=== PATIENT | female | born 1990 ===

== ENCOUNTER 2018-12-16 17:57 | Inpatient (IN) | payer SELFPAY ==
--- NOTE | 2018-12-16 18:47 | C.PDOC ---
History Of Present Illness 28 year old female presents to ED with pain localized to the neck that has persisted for the last two months. Patient has a history of neck mass and neck growth. Her PMD told her to go to the ED, but she didn't go and the pain has progressed. She denies any trauma and difficulty swallowing. Time Seen by Provider: 12/16/18 18:10 Chief Complaint (Nursing): Back Pain History Per: Patient History/Exam Limitations: no limitations Onset/Duration Of Symptoms: Other (2 months) Current Symptoms Are (Timing): Still Present Quality Of Discomfort: "Pain" (localized to the neck) Past Medical History Reviewed: Historical Data, Nursing Documentation, Vital Signs Vital Signs: Last Vital Signs Temp 98.5 F 12/16/18 18:05 Pulse 85 12/16/18 18:05 Resp 16 12/16/18 18:05 BP 118/76 12/16/18 18:05 Pulse Ox 100 12/16/18 18:05 - Medical History PMH: No Chronic Diseases Surgical History: No Surg Hx Family History: States: Unknown Family Hx - Social History Hx Alcohol Use: No Hx Substance Use: No - Immunization History Hx Tetanus Toxoid Vaccination: No Hx Influenza Vaccination: No Hx Pneumococcal Vaccination: No Review Of Systems Constitutional: Negative for: Fever, Weakness ENT: Negative for: Other (difficulty swallowing) Musculoskeletal: Positive for: Neck Pain Skin: Positive for: Other (growth and mass on the neck) Neurological: Negative for: Weakness, Numbness, Dizziness Physical Exam - Physical Exam Appears: Well, Non-toxic, No Acute Distress Skin: Normal Color, Warm, Dry Head: Atraumatic, Normacephalic Eye(s): bilateral: Normal Inspection, PERRL, EOMI Neck: Other (swelling and tenderness to right submandibular and posterior ramus region of the mandibular of the neck; no gross erythema or fluctuance; area involved is 10cm by 6 cm; ) Lymphatic: Other (palpable submental lymph node) Chest: Symmetrical, No Deformity Cardiovascular: Rhythm Regular, No Murmur Respiratory: Normal Breath Sounds, No Accessory Muscle Use Gastrointestinal/Abdominal: Soft, No Tenderness Extremity: Capillary Refill (< 2 seconds) Extremity: Bilateral: Atraumatic, Normal Color And Temperature Pulses: Left Radial: Normal, Right Radial: Normal Neurological/Psych: Oriented x3, Normal Speech, Normal Cognition Gait: Steady ED Course And Treatment - Laboratory Results Result Diagrams: 12/16/18 18:48 12/16/18 18:48 O2 Sat by Pulse Oximetry: 100 - CT Scan/US Neck Other Rad Studies (CT/US): Read By Radiologist CT/US Interpretation: Name:JOHNIE ACEVEDO Exam Date:Dec 16, 2018 7:49:32 PM EST. Modality Type:CT. Description:CT - NECK WITH CORONAL AND SAGITTAL MPRS. Gender:F Laterality:Not applicable. :89 Referring Physician:Tramaine Gross). EXAM: CT Neck with Intravenous Contrast. CLINICAL HISTORY: RIGHT LOWER NECK. TECHNIQUE: Axial computed tomography images of the neck with intravenous contrast. Sagittal and coronal reformatted images were generated. 468 mGy-cm. CONTRAST: With; VISI 320 100MLS. COMPARISON: None provided. FINDINGS: PHARYNX: Unremarkable appearance of the nasopharynx, oropharyx, and hypopharynx. No pharyngeal mucosal based mass lesions. LARYNX: The larynx is unremarkable. The epiglottis appears normal. RETROPHARYNGEAL SPACE: No retropharyngeal soft tissue swelling or gas. TRACHEA: The right neck lymphadenopathy causes displacement of the trachea to the left of midline as well as extrinsic compression of the right internal jugular vein. SALIVARY GLANDS: No salivary gland abnormality evident. Unremarkable appearance of the parotid, submandibular, and sublingual glands. LYMPH NODES: See SOFT TISSUES below. Some bilateral axillary lymphadenopathy is detected in portions of the visualized axillae. THYROID: The thyroid gland is unremarkable. No nodule is evident. SOFT TISSUES: Multiple lobulated soft tissue masses are seen throughout the anterolateral right neck beginning in the retromandibular region extending inferiorly into the right supraclavicular region thought consistent with extensive lymphadenopathy. A lesser number of pathologically enlarged left neck lymph nodes and submental lymph nodes are also present. These findings are thought compatible with neoplastic disease; the possibility of lymphoma should be considered. BONES: No aggressive appearing osseous lesion. No acute osseous abnormality. IMPRESSION: 1. Bilateral neck, axillary and submental lymphadenopathy; much more severely pronounced on the right. Findings compatible with a neoplastic process; highly suspicious for lymphoma. 2. The right neck lymphadenopathy displaces the trachea to the left and causes extrinsic compression upon the right internal jugular vein. 3. Consider further evaluation with CT of the chest abdomen pelvis vs PET CT. . Electronically signed on Dec 16, 2018 8:46:34 PM EST by: Bassem Montoya M.D., [place] Certified By ABR & CBCCT. Fellowship Trained MRI and CT Specialist. Medical Decision Making Medical Decision Making: Impression: Neck mass. Plan: Neck soft tissue w/ contrast ordered for patient. Labs ordered with blood culture. Toradol IVP given to patient. Patient will be admitted for surgery, as discussed with . Disposition Discussed With : Keny Maldonado Doctor Will See Patient In The: Hospital Counseled Patient/Family Regarding: Studies Performed, Diagnosis - Disposition Disposition: HOSPITALIZED Disposition Time: 21:25 Condition: FAIR Forms: [facility] (Finnish) - Clinical Impression Clinical Impression: Neck mass
[2018-12-16 18:57] LABS: BASO % 0.3 % (0.0-2.0); EOS % 0.3 % (0.0-4.0); HEMOGLOBIN 13.3 g/dL (11.0-16.0); LYMPH # 1.2 K/uL (1.0-4.3); MEAN CELL VOLUME 91.9 fL (81.0-99.0); MEAN CORPUSCULAR HEMOGLOBIN 30.6 pg (27.0-31.0); MEAN CORPUSCULAR HGB CONC 33.3 g/dL (33.0-37.0); MEAN PLATELET VOLUME 7.5 fL (7.2-11.7); MONO # 0.4 K/uL (0.0-0.8); NEUT # 1.9 K/uL (1.8-7.0); NEUT % 53.4 % (50.0-75.0); NRBC % 0.2 % (0.0-2.0); RBC 4.35 Mil/uL (3.80-5.20); RED CELL DISTRIBUTION WIDTH 12.9 % (11.5-14.5); WHITE BLOOD COUNT 3.6 K/uL (4.8-10.8)
[2018-12-16 19:04] LABS: ALB/GLOB RATIO 0.8 (1.0-2.1); ALBUMIN 4.3 g/dL (3.5-5.0); ALT/SGPT 23 U/L (9-52); AST/SGOT 39 U/L (14-36); BLOOD UREA NITROGEN 19 mg/dL (7-17); CALCIUM 8.7 mg/dl (8.6-10.4); GFR NON-AFRICAN AMERICAN > 60
[2018-12-16] MEDS ORDERED: Iodixanol 320 mg/ml 150 ml Bottle IV ONE (19:18)
--- NOTE | 2018-12-17 09:42 | CP.PCM.CON ---
History of Present Illness - History of Present Illness History of Present Illness: Surgery Consult note for Dr. Allan. 28 year female with no past medical history presented to ED for worsening neck mass. Patient states she has had this neck mass that has been growing in size along with intermittent pain for the past 2 months. Patient denies difficulty swallowing, chewing meals, fevers, chills, nausea, vomiting, chest pain, SOB, abdominal pain, weigh loss. Surgery consulted for neck mass. PMHx: None Meds: None PSHx: None Allergies: None SHx: Denies tobacco use, ETOH, drug use FHx: Denies hx of cancer/ mass in family Review of Systems - Review of Systems All systems: reviewed and no additional remarkable complaints except - Constitutional Constitutional: As Per HPI Past Patient History - Past Medical History & Family History Past Medical History?: No - Past Social History Smoking Status: Never Smoked - MUSCULOSKELETAL/RHEUMATOLOGICAL Hx Falls: No - PSYCHIATRIC Hx Psychophysiologic Disorder: No Hx Substance Use: No - SURGICAL HISTORY Hx Surgeries: No Other/Comment: appendectomy (2010) - ANESTHESIA Hx Anesthesia: Yes Hx Anesthesia Reactions: No Hx Malignant Hyperthermia: No Meds Allergies/Adverse Reactions: Allergies Allergy/AdvReac Type Severity Reaction Status Date / Time No Known Allergies Allergy Verified 12/16/18 19:06 - Medications Medications: Current Medications Influenza Virus Vaccine (Flucelvax Quad 9447-9356 Syr) 60 mcg IM .ONCE ONE Stop: 12/18/18 10:01 Physical Exam - Constitutional Appears: Non-toxic, No Acute Distress - Head Exam Head Exam: NORMAL INSPECTION - ENT Exam Additional comments: Adenopathy of the right neck extending from parotid gland area inferior to thyroid level No tenderness to palpation Point tenderness of left axillary region No palpable mass - Respiratory Exam Respiratory Exam: NORMAL BREATHING PATTERN - Cardiovascular Exam Additional comments: RR Results - Vital Signs Recent Vital Signs: Last Vital Signs Temp 97.9 F 12/17/18 07:00 Pulse 89 12/17/18 07:00 Resp 20 12/17/18 07:00 BP 118/79 12/17/18 07:00 Pulse Ox 98 12/17/18 07:00 - Labs Result Diagrams: 12/16/18 18:48 12/16/18 18:48 Labs: Laboratory Results - last 24 hr 12/16/18 12/16/18 18:48 18:48 WBC 3.6 L RBC 4.35 Hgb 13.3 Hct 39.9 MCV 91.9 MCH 30.6 MCHC 33.3 RDW 12.9 Plt Count 250 MPV 7.5 Neut % (Auto) 53.4 Lymph % (Auto) 34.0 [place] % (Auto) 12.0 H Eos % (Auto) 0.3 Baso % (Auto) 0.3 Neut # (Auto) 1.9 Lymph # (Auto) 1.2 [place] # (Auto) 0.4 Eos # (Auto) 0.0 Baso # (Auto) 0.0 Sodium 138 Potassium 3.5 L Chloride 103 Carbon Dioxide 27 Anion Gap 11 BUN 19 H Creatinine 0.5 L Est GFR ( Amer) > 60 Est GFR (Non-Af Amer) > 60 Random Glucose 99 Calcium 8.7 Total Bilirubin 0.4 AST 39 H ALT 23 Alkaline Phosphatase 154 H Total Protein 9.5 H Albumin 4.3 Globulin 5.2 H Albumin/Globulin Ratio 0.8 L Assessment & Plan - Assessment and Plan (Free Text) Assessment: 28 yr female presenting with 2 month R neck mass Plan: - F/u CT chest/ abd - consult IR for possible biopsy - Further recs per Dr. Allan - F/u quant Blake Stallings, PGY1
--- NOTE | 2018-12-17 12:14 | CT ---
Date of service: 12/16/2018 PROCEDURE: CT NECK WITH CONTRAST HISTORY: right side neck mass COMPARISON: None available. TECHNIQUE: CT of the neck with intravenous contrast. Coronal and sagittal reformats generated. Intravenous contrast dose: Radiation dose: Total exam DLP = 468.34 mGy-cm. This CT exam was performed using one or more of the following dose reduction techniques: Automated exposure control, adjustment of the mA and/or kV according to patient size, and/or use of iterative reconstruction technique. FINDINGS: NASOPHARYNX: Unremarkable. SUPRAHYOID NECK: Unremarkable oropharynx, oral cavity, parapharyngeal space and retropharyngeal space. INFRAHYOID NECK: Unremarkable larynx, hypopharynx, and supraglottic space. Vocal cords intact. MASS: None. GLANDS: Parotid and submandibular glands unremarkable. Normal size thyroid gland, without nodule. LYMPH NODES: Extensive cervical lymphadenopathy with a roughly 3.1 centimeter right neck lymph node measuring mass-effect upon the carotid sheath structures. Additional extensive supraclavicular lymphadenopathy. Slight airway deviation to the left. CERVICAL SPINE: No fracture or focal lesion. VASCULAR STRUCTURES: Unremarkable. OTHER FINDINGS: None. IMPRESSION: Extensive cervical and supraclavicular lymphadenopathy suspicious for neoplastic process such as lymphoma.
[2018-12-17] MEDS ORDERED: Iodixanol 320 MG/ML 100 ML BOTTLE IV ONE (19:03)
--- NOTE | 2018-12-17 21:09 | CP.PCM.HP ---
Present on Admission - Present on Admission Any Indicators Present on Admission: No Past Patient History - Past Medical History & Family History Past Medical History?: No - Past Social History Smoking Status: Never Smoked - MUSCULOSKELETAL/RHEUMATOLOGICAL Hx Falls: No - PSYCHIATRIC Hx Psychophysiologic Disorder: No Hx Substance Use: No - SURGICAL HISTORY Hx Surgeries: No Other/Comment: appendectomy (2010) - ANESTHESIA Hx Anesthesia: Yes Hx Anesthesia Reactions: No Hx Malignant Hyperthermia: No Meds Allergies/Adverse Reactions: Allergies Allergy/AdvReac Type Severity Reaction Status Date / Time No Known Allergies Allergy Verified 12/16/18 19:06 Results - Vital Signs Recent Vital Signs: Last Vital Signs Temp 98.9 F 12/17/18 16:00 Pulse 91 H 12/17/18 16:00 Resp 20 12/17/18 16:00 BP 112/74 12/17/18 16:00 Pulse Ox 97 12/17/18 16:00 - Labs Result Diagrams: 12/16/18 18:48 12/16/18 18:48 Labs: Laboratory Results - last 24 hr 12/17/18 13:55 ESR 92 H
--- NOTE | 2018-12-18 04:07 | HP ---
CHIEF COMPLAINT: The patient has a mass on the right side of the neck for two months. HISTORY OF PRESENT ILLNESS: This is a 28-year-old female with no past medical history. She has a mass in the right side of the neck, and the patient was told by her PMD to come to emergency room. The patient does not have any fever, chills, or rigors. She denies any history of weight loss. She denies any history of problem on swallowing, cough, sore throat, or runny nose. She denies any prior history of tuberculosis. PAST MEDICAL HISTORY: Nothing significant. SOCIAL HISTORY: Nonsmoker. Non-EtOH user. MEDICATIONS: No current medications. REVIEW OF SYSTEMS: No constitutional symptoms. No history of tiredness, anorexia, malaise, or fatigue. PHYSICAL EXAMINATION: GENERAL: This is a 28-year-old young female, in no distress. VITAL SIGNS: Blood pressure is 112/74, pulse 91, respiratory rate 20, and temperature 98.9. SKIN: No rash. No bruises. No purpura. HEENT: Atraumatic and normocephalic. Negative pallor. Negative jaundice. Extraocular movements are intact. NECK: Supple. The patient has a large mass in the right submandibular area, which is firm, nontender and mobile. The patient has on the left side of her neck as well. No JVD. LUNGS: Clear. No rales. No rhonchi. CARDIOVASCULAR SYSTEM: S1 and S2, regular. ABDOMEN: Soft. Nontender. Bowel sounds are positive. EXTREMITIES: No clubbing, cyanosis, or edema. CENTRAL NERVOUS SYSTEM: Awake,alert and oriented x3. ASSESSMENT: Right-sided neck mass, rule out lymphoma, rule out head and neck malignancy, less likely to be tuberculosis. PLAN: Admit. Detailed orders are written. Keny Maldonado MD
--- NOTE | 2018-12-18 08:24 | CP.PCM.PN ---
Subjective - Date & Time of Evaluation Date of Evaluation: 12/18/18 Time of Evaluation: 08:21 - Subjective Subjective: SURGERY NOTE FOR DR. HARPER 28F seen and examined at bedside. Patient denies shortness of breath. Continues to complain of the right sided neck mass. Mildly tender. Objective - Vital Signs/Intake and Output Vital Signs (last 24 hours): Temp Pulse Resp BP Pulse Ox 98 F 79 20 118/83 98 12/18/18 07:54 12/18/18 07:54 12/18/18 07:54 12/18/18 07:54 12/18/18 07:54 - Medications Medications: Current Medications Influenza Virus Vaccine (Flucelvax Quad [id number] Syr) 60 mcg IM .ONCE ONE Stop: 12/18/18 10:01 - Labs Labs: 12/16/18 18:48 12/16/18 18:48 - Constitutional Appears: Non-toxic, No Acute Distress - Neck Exam Neck Exam: Lymphadenopathy (right sided) - Respiratory Exam Respiratory Exam: Clear to Ausculation Bilateral, NORMAL BREATHING PATTERN - Cardiovascular Exam Cardiovascular Exam: REGULAR RHYTHM, +S1, +S2 - GI/Abdominal Exam GI & Abdominal Exam: Soft. absent: Distended, Firm, Guarding, Rigid, Tenderness, Rebound - Neurological Exam Neurological Exam: Alert, Awake - Skin Skin Exam: Dry, Intact, Normal Color, Warm Assessment and Plan - Assessment and Plan (Free Text) Assessment: 28F with left cervical lymphadenopathy Plan: - wll require biopsy - will reach out to IR Further recs discuss with Dr. Jerrell Bradley, PGY3
--- NOTE | 2018-12-18 09:43 | CT ---
Date of service: 12/17/2018 PROCEDURE: CT Chest, Abdomen and Pelvis with intravenous contrast HISTORY: lymphoma COMPARISON: None available. TECHNIQUE: IV dose administered: 100 mL of Visipaque 320 intravenously. Axial and reformatted coronal and sagittal CT images of the chest abdomen and pelvis were obtained after IV contrast administration. Radiation dose: Total exam DLP = 844.96 mGy-cm. This CT exam was performed using one or more of the following dose reduction techniques: Automated exposure control, adjustment of the mA and/or kV according to patient size, and/or use of iterative reconstruction technique. FINDINGS: CT CHEST WITH CONTRAST: LUNGS: No evidence of focal infiltrate or consolidation in the lungs. Mild atelectasis and pulmonary vascular congestion is noted. MEDIASTINUM: Unremarkable. Normal caliber aorta and pulmonary arterial trunk. No aortic dissection. Normal size heart. LYMPH NODES: There are large conglomerate lymphadenopathy at the right mid and lower neck extending to the right supraclavicular region. Partially image submental lymphadenopathy are also noted. There are mildly to moderately enlarged bilateral axillary lymphadenopathy seen. PLEURA: Unremarkable. No pneumothorax. No pleural fluid. BONES: Unremarkable. OTHER FINDINGS: None. CT ABDOMEN AND PELVIS: LIVER: Mild hepatomegaly is noted. No evidence of mass lesion in the liver. The portal vein is patent. GALLBLADDER AND BILE DUCTS: Unremarkable. PANCREAS: Unremarkable. No gross lesion or ductal dilatation. SPLEEN: Unremarkable. ADRENALS: Unremarkable. No mass. KIDNEYS AND URETERS: Unremarkable. No hydronephrosis. No solid mass. VASCULATURE: No aortic atherosclerotic calcification or mural plaque present. Unremarkable. No aortic aneurysm. BOWEL: Unremarkable. No obstruction. No gross mural thickening. The stomach is mildly to moderately distended filled with food debris is. APPENDIX: No evidence of acute appendicitis. PERITONEUM: Unremarkable. No free fluid. No free air. LYMPH NODES: There are mildly enlarged periaortic lymph nodes seen at the upper abdomen is above the level of the kidneys. Slightly prominent left inguinal lymph nodes are also noted. BLADDER: Unremarkable. REPRODUCTIVE: Unremarkable. BONES: No acute fracture. OTHER FINDINGS: None. IMPRESSION: Large conglomerate lymphadenopathy at the right mid and lower neck. Moderate bilateral axillary lymphadenopathy. The possibility of neoplasm such as lymphoma should be considered. Mildly enlarged periaortic upper abdomen lymph nodes noted. Mild hepatomegaly. Kotiox-in-[id number] distended stomach of uncertain etiology. Preliminary report contains concordant findings was submitted by [facility] Radiology.
[2018-12-18] MEDS ORDERED: Influenza Vaccine 60 mcg/0.5 mL SYR (4YR UP) IM ONE (10:00)
[2018-12-18 11:13] LABS: BASO % 0.4 % (0.0-2.0); EOS % 0.5 % (0.0-4.0); HEMOGLOBIN 13.5 g/dL (11.0-16.0); LYMPH # 1.3 K/uL (1.0-4.3); LYMPH % 38.8 % (20.0-40.0); MEAN CELL VOLUME 91.1 fL (81.0-99.0); MEAN CORPUSCULAR HEMOGLOBIN 31.3 pg (27.0-31.0); MEAN CORPUSCULAR HGB CONC 34.3 g/dL (33.0-37.0); MEAN PLATELET VOLUME 7.5 fL (7.2-11.7); MONO # 0.5 K/uL (0.0-0.8); MONO % 14.7 % (0.0-10.0); NEUT # 1.6 K/uL (1.8-7.0); NEUT % 45.6 % (50.0-75.0); NRBC % 0.1 % (0.0-2.0); RBC 4.31 Mil/uL (3.80-5.20); RED CELL DISTRIBUTION WIDTH 12.5 % (11.5-14.5); WHITE BLOOD COUNT 3.5 K/uL (4.8-10.8)
[2018-12-18 11:29] LABS: ALB/GLOB RATIO 0.8 (1.0-2.1); ALBUMIN 4.2 g/dL (3.5-5.0); ALT/SGPT 26 U/L (9-52); AST/SGOT 34 U/L (14-36); BLOOD UREA NITROGEN 12 mg/dL (7-17); CALCIUM 8.7 mg/dl (8.6-10.4); GFR NON-AFRICAN AMERICAN > 60
--- NOTE | 2018-12-18 12:31 | CP.PCM.PN ---
Subjective - Date & Time of Evaluation Date of Evaluation: 12/18/18 Time of Evaluation: 09:00 - Subjective Subjective: dictated Objective - Vital Signs/Intake and Output Vital Signs (last 24 hours): Temp Pulse Resp BP Pulse Ox 98 F 79 20 118/83 98 12/18/18 07:54 12/18/18 07:54 12/18/18 07:54 12/18/18 07:54 12/18/18 07:54 - Labs Labs: 12/18/18 11:06 12/18/18 11:06
[2018-12-18] MEDS ORDERED: ceFAZolin 1 gm in NS 1 GM/100 ML BAG IVPB ONE (13:22)
[2018-12-18] MEDS ORDERED: Bupivacaine HCl 0.5% PF (10 ml) Inj ONE (13:23)
[2018-12-18] MEDS ORDERED: Lidocaine 2% MPF (5 ml) Inj ONE ×2 (13:38→13:39)
[2018-12-18] MEDS ORDERED: Lidocaine Hydrochloride 10 ML INJ ONE (13:39)
[2018-12-18] MEDS ORDERED: Midazolam 2 MG/2 ML VIAL ONE (13:47)
[2018-12-18] MEDS ORDERED: Propofol 10 mg/ml Inj (20 ML) ONE (13:47)
[2018-12-18] MEDS ORDERED: Lidocaine Hydrochloride 5 ML INJ ONE (14:48)
[2018-12-18] MEDS ORDERED: Oxycodone/Acetaminophen 5/325 mg Tab PO PRN (14:55)
--- NOTE | 2018-12-18 14:55 | PCM.SURG1 ---
Surgeon's Initial Post Op Note - Surgeon's Notes Surgeon: Dr. alvarado Vapor Coater: Dr. King PGY3 Type of Anesthesia: General LMA Pre-Operative Diagnosis: neck mass Operative Findings: see dictation Post-Operative Diagnosis: same Operation Performed: true-cut needle biopsy Specimen/Specimens Removed: Right neck mass Estimated Blood Loss: EBL {In ML}: 5 Blood Products Given: N/A Drains Used: No Drains Post-Op Condition: Good Date of Surgery/Procedure: 12/18/18 Time of Surgery/Procedure: 14:55
[2018-12-18] MEDS ORDERED: HYDROmorphone 0.5 mg/0.5 ml ISec IVP PRN (14:57)
[2018-12-18] MEDS ORDERED: HYDROmorphone 0.5 mg/0.5 ml ISec ONE (15:06)
--- NOTE | 2018-12-18 22:10 | CP.PCM.CON ---
History of Present Illness - History of Present Illness History of Present Illness: 28 year old female with no past medical history, presenting with neck pain, found to have lymphadenopathy. The patient notes to progressive neck pain and swelling for about 2 months. The pain worsened which prompted her to come to [facility] ER. A CT C/A/P revealed lymphadenopathy above and below the diaphragm. She is s/p excisional LN biopsy. Past medical history: None Past surgical history: Appendectomy Family history: Denies hematologic and oncologic problems Social history: Denies tobacco, alcohol, and illicit drug use. Allergies: NKA Review of systems: All remaining review of systems including HEENT, cardiovascular, respiratory, gastrointestinal, genitourinary, musculoskeletal, dermatologic, neurologic, and psychiatric are negative unless mentioned in the HPI. Past Patient History - Past Medical History & Family History Past Medical History?: No - Past Social History Smoking Status: Never Smoked - MUSCULOSKELETAL/RHEUMATOLOGICAL Hx Falls: No - PSYCHIATRIC Hx Psychophysiologic Disorder: No Hx Substance Use: No - SURGICAL HISTORY Hx Surgeries: No Other/Comment: appendectomy (2010) - ANESTHESIA Hx Anesthesia: Yes Hx Anesthesia Reactions: No Hx Malignant Hyperthermia: No Meds Allergies/Adverse Reactions: Allergies Allergy/AdvReac Type Severity Reaction Status Date / Time No Known Allergies Allergy Verified 12/16/18 19:06 - Medications Medications: Current Medications Acetaminophen (Tylenol 325mg Tab) 650 mg PO Q4 PRN PRN Reason: Pain, Mild (1-3) Oxycodone/Acetaminophen (Percocet 5/325 Mg Tab) 1 tab PO Q6 PRN PRN Reason: Pain, moderate (4-7) Stop: 12/21/18 18:01 Physical Exam - Head Exam Head Exam: ATRAUMATIC - Eye Exam Eye Exam: Normal appearance - ENT Exam ENT Exam: Mucous Membranes Dry - Neck Exam Neck exam: Positive for: Lymphadenopathy - Respiratory Exam Respiratory Exam: NORMAL BREATHING PATTERN - Cardiovascular Exam Cardiovascular Exam: +S1, +S2 - GI/Abdominal Exam GI & Abdominal Exam: Normal Bowel Sounds - Extremities Exam Extremities exam: Positive for: normal inspection - Neurological Exam Neurological exam: Oriented x3 - Psychiatric Exam Psychiatric exam: Normal Affect, Normal Mood - Skin Skin Exam: Warm Results - Vital Signs Recent Vital Signs: Last Vital Signs Temp 98.2 F 12/18/18 15:45 Pulse 80 12/18/18 15:45 Resp 13 12/18/18 15:45 BP 108/70 12/18/18 15:45 Pulse Ox 99 12/18/18 15:45 - Labs Result Diagrams: 12/18/18 11:06 12/18/18 11:06 Labs: Laboratory Results - last 24 hr 12/18/18 12/18/18 12/18/18 09:35 11:06 11:06 WBC 3.5 L RBC 4.31 Hgb 13.5 Hct 39.3 MCV 91.1 MCH 31.3 H MCHC 34.3 RDW 12.5 Plt Count 242 MPV 7.5 Neut % (Auto) 45.6 L Lymph % (Auto) 38.8 [place] % (Auto) 14.7 H Eos % (Auto) 0.5 Baso % (Auto) 0.4 Neut # (Auto) 1.6 L Lymph # (Auto) 1.3 [place] # (Auto) 0.5 Eos # (Auto) 0.0 Baso # (Auto) 0.0 Sodium 133 Potassium 3.9 Chloride 101 Carbon Dioxide 27 Anion Gap 10 BUN 12 Creatinine 0.6 L Est GFR ( Amer) > 60 Est GFR (Non-Af Amer) > 60 Random Glucose 91 Calcium 8.7 Total Bilirubin 0.5 AST 34 ALT 26 Alkaline Phosphatase 153 H Total Protein 9.4 H Albumin 4.2 Globulin 5.1 H Albumin/Globulin Ratio 0.8 L Urine HCG, Qual Negative Assessment & Plan (1) Neck mass Assessment and Plan: f/u excisional LN biopsy lymphadenopathy above and below the diaphragm further treatment recommendations based on above outpatient f/u Status: Acute (2) Leukopenia Assessment and Plan: mild no neutropenia Thank you for this interesting consult. Status: Acute
--- NOTE | 2018-12-19 03:20 | CP.PCM.PN ---
Subjective - Date & Time of Evaluation Date of Evaluation: 12/19/18 Time of Evaluation: 03:17 - Subjective Subjective: SURGERY NOTE FOR DR. HARPER 28F seen and examined at bedside. Patient is s/p right cervical lymph node biopsy. Denies pain, denies shortness of breath. Objective - Vital Signs/Intake and Output Vital Signs (last 24 hours): Temp Pulse Resp BP Pulse Ox 97.9 F 76 18 104/65 99 12/18/18 23:35 12/18/18 23:35 12/18/18 23:35 12/18/18 23:35 12/18/18 23:35 Intake and Output: 12/18/18 12/19/18 18:59 06:59 Intake Total 550 Balance 550 - Medications Medications: Current Medications Acetaminophen (Tylenol 325mg Tab) 650 mg PO Q4 PRN PRN Reason: Pain, Mild (1-3) Oxycodone/Acetaminophen (Percocet 5/325 Mg Tab) 1 tab PO Q6 PRN PRN Reason: Pain, moderate (4-7) Stop: 12/21/18 18:01 Last Admin: 12/19/18 00:03 Dose: 1 tab - Labs Labs: 12/18/18 11:06 12/18/18 11:06 - Constitutional Appears: Non-toxic, No Acute Distress - Neck Exam Neck Exam: Lymphadenopathy (right neck) - Respiratory Exam Respiratory Exam: Clear to Ausculation Bilateral, NORMAL BREATHING PATTERN - Cardiovascular Exam Cardiovascular Exam: REGULAR RHYTHM, +S1, +S2 Additional comments: site of biopsy CDI - GI/Abdominal Exam GI & Abdominal Exam: Soft. absent: Distended, Firm, Guarding, Rigid, Tenderness, Rebound Assessment and Plan - Assessment and Plan (Free Text) Assessment: 28F with lymphadenopathy, right cervical, b/l axillary and periaortic. s/p vlad- cut biopsy - frozen path - mostly muscle tissue Plan: - will require CT guided biopsy Friday with Dr. Kelley - Oncology on board Further recs discuss with Dr. Jerrell Bradley, PGY3
--- NOTE | 2018-12-19 04:45 | DS ---
DISCHARGE DIAGNOSIS: Lymph node in the neck, pending etiology. HISTORY OF PRESENT ILLNESS AND HOSPITAL COURSE: This is a 28-year-old female with lymph node in the right neck who was referred by her PMD for biopsy, and the patient is undergoing biopsy today. She is medically stable. The patient is afebrile. No shortness of breath. No nausea or vomiting. No chest pain. PHYSICAL EXAMINATION: VITAL SIGNS: Blood pressure 110/70, pulse 70, respiratory rate 16, and temperature 99. LUNGS: Clear. ABDOMEN: Soft. LYMPHATIC: Right side of the submandibular area lymph node. ASSESSMENT: Lymphadenopathy, pending biopsy. PLAN: Monitor the patient. Keny Maldonado MD
[2018-12-19 08:10] LABS: HEPATITIS B SURFACE AG Negative (NEGATIVE)
[2018-12-19 08:15] LABS: HEPATITIS A IGM NEGATIVE (NEGATIVE); HEPATITIS B CORE AB NEGATIVE (NEGATIVE)
[2018-12-19 08:27] LABS: HEPATITIS C ANTIBODY NEGATIVE (NEGATIVE)
--- NOTE | 2018-12-20 22:19 | CP.PCM.PN ---
Subjective - Date & Time of Evaluation Date of Evaluation: 12/20/18 Time of Evaluation: 14:34 - Subjective Subjective: dictated Objective - Vital Signs/Intake and Output Vital Signs (last 24 hours): Temp Pulse Resp BP Pulse Ox 98.1 F 104 H 20 123/86 97 12/20/18 16:00 12/20/18 16:00 12/20/18 16:00 12/20/18 16:00 12/20/18 16:00 - Medications Medications: Current Medications Acetaminophen (Tylenol 325mg Tab) 650 mg PO Q4 PRN PRN Reason: Pain, Mild (1-3) Oxycodone/Acetaminophen (Percocet 5/325 Mg Tab) 1 tab PO Q6 PRN PRN Reason: Pain, moderate (4-7) Stop: 12/21/18 18:01 Last Admin: 12/19/18 00:03 Dose: 1 tab - Labs Labs: 12/18/18 11:06 12/18/18 11:06
--- NOTE | 2018-12-21 01:58 | PN ---
DATE: 12/20/2018 SUBJECTIVE: The patient is afebrile. Her lymph nodes are enlarged and pending biopsy. The patient's HIV antibody is positive. PHYSICAL EXAMINATION: VITAL SIGNS: Blood pressure 122/86, pulse 104, respiratory rate 20, and temperature 98.1. LUNGS: Clear. CVS: S1, S2, regular. ABDOMEN: Soft. ASSESSMENT: 1. Rule out human immunodeficiency virus infection. The patient's human immunodeficiency virus is positive. 2. QuantiFERON is positive. 3. Lymphadenopathy. PLAN: Pending biopsy. Monitor the patient. We will get HIV PCR and T cells. Keny Maldonado MD
--- NOTE | 2018-12-21 10:00 | PCM.SURG1 ---
Surgeon's Initial Post Op Note - Surgeon's Notes Surgeon: Keegan Kelley MD [employer]enic [employer] Supervisor: NONE Type of Anesthesia: Local Pre-Operative Diagnosis: Lymphadenopathy Operative Findings: US showed multiple enlarged cervical lymph nodes Post-Operative Diagnosis: Lymphadenopathy Operation Performed: US guided core biopsy of enlarged cervical lymph node Specimen/Specimens Removed: 20 g core x 8 Estimated Blood Loss: EBL {In ML}: 1 Blood Products Given: N/A Drains Used: No Drains Post-Op Condition: Fair Date of Surgery/Procedure: 12/21/18 Time of Surgery/Procedure: 09:55
--- NOTE | 2018-12-21 13:33 | US ---
PROCEDURE: Date of procedure: 12/21/2018 Procedure: Ultrasound-guided core biopsy of RIGHT neck lymph node, CPT 98998 Ultrasound guidance for biopsy, [address] HISTORY: Enlarged cervical lymph nodes. TECHNIQUE: Following informed consent and procedure time-out, limited ultrasound patient's Right neck demonstrates multiple large lymph nodes. A large submandibular lymph node selected for biopsy measured 3.6 x 2.2 cm centimeter. There is loss of fatty hilum. After the patient neck was prepped and draped in the usual sterile fashion and the skin anesthetized with lidocaine, ultrasound guided core biopsy was performed. A 20 gauge core needle was advanced under ultrasound guidance into the mass. Upon confirmation of needle position, 8x 20 gauge specimens were obtained and sent for routine histology and flow cytometry. A post biopsy ultrasound showed no hematoma IMPRESSION: Ultrasound-guided core biopsy of enlarged right cervical lymph node.
--- NOTE | 2018-12-21 16:18 | CP.PCM.PCO ---
Physician Communication Note - Physician Communication Note Physician Communication Note: Change of service to hospitalist service. Dr. Maldonado has contacted us.
--- NOTE | 2018-12-21 16:36 | CP.PCM.HP ---
<Michelle Prabhakar - Last Filed: 12/21/18 17:26> History of Present Illness - History of Present Illness History of Present Illness: Patient is being transferred to Hospitalist service 12/19 insurance Patient is a 28 year old female with no PMHx who presented to ED for evaluation of increasing in size, right sided neck mass. Pt reports she first noticed the mass on her right neck, and over the past 2 months it has increased significantly in size. 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 Patient reports some phlegm w/ blod tinged streaks, but denies cough or hemoptysis. Patient reports no new sexual encounters, as she is monogamous with her , and no risky behaviors. Patient reports she was recently tested for HIV s/p spontaneous 3 months ago, and all results have been negative. Patient denies weakness, fevers, chills, sweats, weight loss, cough, SOB, nausea, diarrhea. PMHx: denies PSHx: appendectomy Meds: denies Allergies: NKDA SocHx: denies tobacco/drug use, social alcohol use. Lives home with and 2 kids FamHx: unknown Present on Admission - Present on Admission Any Indicators Present on Admission: No Review of Systems - Constitutional Constitutional: absent: Chills, Lethargy - EENT Nose/Mouth/Throat: Nasal Discharge, Throat Swelling, Neck Mass. absent: Dysphagia, Hoarsness, Sore Throat - Cardiovascular Cardiovascular: absent: Chest Pain, Palpitations - Respiratory Respiratory: Cough, Hemoptysis - Gastrointestinal Gastrointestinal: absent: Abdominal Pain, Diarrhea, Nausea - Genitourinary Genitourinary: absent: Dysuria - Hematologic/Lymphatic Hematologic: Lymphadenopathy Past Patient History - Past Medical History & Family History Past Medical History?: No - Past Social History Smoking Status: Never Smoked - MUSCULOSKELETAL/RHEUMATOLOGICAL Hx Falls: No - PSYCHIATRIC Hx Psychophysiologic Disorder: No Hx Substance Use: No - SURGICAL HISTORY Hx Surgeries: No Other/Comment: appendectomy (2010) - ANESTHESIA Hx Anesthesia: Yes Hx Anesthesia Reactions: No Hx Malignant Hyperthermia: No Meds Allergies/Adverse Reactions: Allergies Allergy/AdvReac Type Severity Reaction Status Date / Time No Known Allergies Allergy Verified 12/16/18 19:06 Physical Exam - Constitutional Appears: Non-toxic, No Acute Distress - Head Exam Head Exam: ATRAUMATIC, NORMAL INSPECTION, NORMOCEPHALIC - Eye Exam Eye Exam: EOMI, Normal appearance - ENT Exam ENT Exam: Mucous Membranes Moist, Normal Exam - Neck Exam Neck exam: Positive for: Lymphadenopathy (right neck), Tenderness. Negative for: Thyromegaly - Respiratory Exam Respiratory Exam: Clear to Auscultation Bilateral, NORMAL BREATHING PATTERN. absent: Rales, Rhonchi, Wheezes - Cardiovascular Exam Cardiovascular Exam: REGULAR RHYTHM, +S1, +S2. absent: Tachycardia - GI/Abdominal Exam GI & Abdominal Exam: Normal Bowel Sounds, Soft. absent: Distended, Tenderness - Extremities Exam Extremities exam: Positive for: normal inspection. Negative for: calf tenderness, pedal edema - Neurological Exam Neurological exam: Alert, Normal Gait, Oriented x3 - Psychiatric Exam Psychiatric exam: Normal Affect, Normal Mood - Skin Skin Exam: Dry, Intact, Normal Color, Warm Results - Vital Signs Recent Vital Signs: Last Vital Signs Temp 97.9 F 12/21/18 15:42 Pulse 88 12/21/18 15:42 Resp 20 12/21/18 15:42 BP 103/61 12/21/18 15:42 Pulse Ox 98 12/21/18 15:42 - Labs Result Diagrams: 12/18/18 11:06 12/18/18 11:06 Assessment & Plan - Assessment and Plan (Free Text) Assessment: 28 year old female admitted for evaluation of acute lymphadenopathy of right neck, found to test positive for HIV and TB Plan: TB -Quaniteron positive -f/u PPD -f/u sputum cx for AFB -isolation precautions -Chest CT: no acute pathology -ID consult, Dr. Beltran HIV -f/u HIV RNA, AB -f/u CD3/4 -r/o PNA -IV Abx: vanco zosyn, bactrim -ID consult, Dr. Beltran Lymphadenopathy -Right neck , pathology shows fibroadipose tissue showing patchy acute and chronic inflammation -f/u bx 2/4 -f/u TSH, LDH -f/u lymphocyte subset panel -urine cx -acetaminophen and percocet pain control Discussed w/ Dr. Comer -Michelle Prabhakar, PGY-1 <Norris Comer - Last Filed: 12/21/18 17:33> Results - Vital Signs Recent Vital Signs: Last Vital Signs Temp 97.9 F 12/21/18 15:42 Pulse 88 12/21/18 15:42 Resp 20 12/21/18 15:42 BP 103/61 12/21/18 15:42 Pulse Ox 98 12/21/18 15:42 - Labs Result Diagrams: 12/18/18 11:06 12/18/18 11:06 Attending/Attestation - Attestation I have personally seen and examined this patient.: Yes I have fully participated in the care of the patient.: Yes I have reviewed all pertinent clinical information: Yes Notes (Text): 12/21/18 17:29 Medical attending: Patient was seen and examined by me. Agree with the above note by the resident Patient is a transfer to the hospitalist service. As mentioned above, she came with concerns for growing neck mass and has just had on 12/18 an exicional biopsy by surgery as well as IR doing an additional biopsy earlier today. The patient has been moved to an isolation room as there is + HIV with also a + Qunaterferon Gold assay. There is some question if she is having blood in sputum or not however reguardless will check sptum AFB stain and cultures. Also there is pending CD3, CD4, and CD8 testing and HIV viral quant assay as well that were already ordered For the time being will place on Vancomycin and Zosyn and also IV bactrim until we have further information return to us Norris Comer
[2018-12-21] MEDS ORDERED: Tuberculin 5 Units/0.1 ml Inj ID ONE (17:15)
[2018-12-21] MEDS: Piperacill/Tazo 3.375gm in Dex 3.375 GM/50 ML BAG IVPB SCH (19:13)
[2018-12-21] MEDS: Vancomycin 1 gm/NS 200 ml 1 GM/200 ML BAG IVPB SCH (20:20)
--- NOTE | 2018-12-21 23:07 | CP.PCM.PN ---
Subjective - Date & Time of Evaluation Date of Evaluation: 12/21/18 Time of Evaluation: 19:00 - Subjective Subjective: No complaints. Objective - Vital Signs/Intake and Output Vital Signs (last 24 hours): Temp Pulse Resp BP Pulse Ox 97.9 F 79 18 116/72 97 12/21/18 22:45 12/21/18 22:45 12/21/18 22:45 12/21/18 22:45 12/21/18 22:45 - Medications Medications: Current Medications Acetaminophen (Tylenol 325mg Tab) 650 mg PO Q4 PRN PRN Reason: Pain, Mild (1-3) Piperacillin Sod/Tazobactam Sod (Zosyn 3.375 Gm Iv Premix) 3.375 gm in 50 mls @ 100 mls/hr IVPB Q6H ARSLAN; Protocol Last Admin: 12/21/18 19:13 Dose: 100 mls/hr Trimethoprim/Sulfamethoxazole (80 mg/ Dextrose) 100 mls @ 100 mls/hr IVPB Q12H ARSLAN; Protocol Vancomycin/Sodium Chloride (Vancomycin 1 Gm/Ns 200 Ml) 1 gm in 200 mls @ 133 mls/hr IVPB Q24H ARSLAN; Protocol Stop: 12/26/18 17:01 Last Admin: 12/21/18 20:20 Dose: 133 mls/hr - Labs Labs: 12/18/18 11:06 12/18/18 11:06 - Head Exam Head Exam: ATRAUMATIC - Eye Exam Eye Exam: Normal appearance - ENT Exam ENT Exam: Mucous Membranes Dry - Respiratory Exam Respiratory Exam: NORMAL BREATHING PATTERN - Cardiovascular Exam Cardiovascular Exam: +S1, +S2 - GI/Abdominal Exam GI & Abdominal Exam: Normal Bowel Sounds Assessment and Plan (1) Neck mass Assessment & Plan: f/u biopsy Status: Acute (2) Leukopenia Assessment & Plan: ? active HIV; f/u PCR Status: Acute
[2018-12-21] MEDS: Sulfamethoxazole/Trimethoprim 80 MG in Dextrose 5% In Water 100 ML IVPB SCH (23:09)
[2018-12-22] MEDS: Piperacill/Tazo 3.375gm in Dex 3.375 GM/50 ML BAG IVPB SCH ×5 (00:18→23:43)
[2018-12-22] MEDS: Sulfamethoxazole/Trimethoprim 80 MG in Dextrose 5% In Water 100 ML IVPB SCH ×2 (09:14→22:18)
--- NOTE | 2018-12-22 09:22 | CP.PCM.PN ---
Subjective - Date & Time of Evaluation Date of Evaluation: 12/22/18 Time of Evaluation: 09:22 - Subjective Subjective: HOSPITALIST SERVICE pt s/e at bedside, contact precautions, denies pain or soreness at site of bx, denies difficulty swallowing, denies cp sob fc nv, pt understands need for hospitalization and agrees with plan, some preliminary results have been shared w/ her, will continue to update Objective - Vital Signs/Intake and Output Vital Signs (last 24 hours): Temp Pulse Resp BP Pulse Ox 97.9 F 83 20 104/72 96 12/22/18 07:00 12/22/18 07:00 12/22/18 07:00 12/22/18 07:00 12/22/18 07:00 Intake and Output: 12/22/18 12/22/18 06:59 18:59 Intake Total 300 Balance 300 - Medications Medications: Current Medications Acetaminophen (Tylenol 325mg Tab) 650 mg PO Q4 PRN PRN Reason: Pain, Mild (1-3) Piperacillin Sod/Tazobactam Sod (Zosyn 3.375 Gm Iv Premix) 3.375 gm in 50 mls @ 100 mls/hr IVPB Q6H ARSLAN; Protocol Last Admin: 12/22/18 05:12 Dose: 100 mls/hr Trimethoprim/Sulfamethoxazole (80 mg/ Dextrose) 100 mls @ 100 mls/hr IVPB Q12H ARSLAN; Protocol Last Admin: 12/22/18 09:14 Dose: 100 mls/hr Vancomycin/Sodium Chloride (Vancomycin 1 Gm/Ns 200 Ml) 1 gm in 200 mls @ 133 mls/hr IVPB Q24H ARSLAN; Protocol Stop: 12/26/18 17:01 Last Admin: 12/21/18 20:20 Dose: 133 mls/hr - Labs Labs: 12/18/18 11:06 12/18/18 11:06 - Additional Findings Additional findings: - Constitutional Appears: Non-toxic, No Acute Distress - Head Exam Head Exam: ATRAUMATIC, NORMAL INSPECTION, NORMOCEPHALIC - Eye Exam Eye Exam: EOMI, Normal appearance - ENT Exam ENT Exam: Mucous Membranes Moist, Normal Exam - Neck Exam Neck exam: Positive for: Lymphadenopathy (right neck), Tenderness. Negative for: Thyromegaly - Respiratory Exam Respiratory Exam: Clear to Auscultation Bilateral, NORMAL BREATHING PATTERN. absent: Rales, Rhonchi, Wheezes - Cardiovascular Exam Cardiovascular Exam: REGULAR RHYTHM, +S1, +S2. absent: Tachycardia - GI/Abdominal Exam GI & Abdominal Exam: Normal Bowel Sounds, Soft. absent: Distended, Tenderness - Extremities Exam Extremities exam: Positive for: normal inspection. Negative for: calf tenderness, pedal edema - Neurological Exam Neurological exam: Alert, Normal Gait, Oriented x3 - Psychiatric Exam Psychiatric exam: Normal Affect, Normal Mood - Skin Skin Exam: Dry, Intact, Normal Color, Warm Assessment and Plan - Assessment and Plan (Free Text) Plan: 28 year old female admitted for evaluation of acute lymphadenopathy of right neck, found to test positive for HIV and TB Plan: TB -Quaniteron positive -f/u PPD -f/u sputum cx for AFB -isolation precautions -Chest CT: no acute pathology -ID consult, Dr. Beltran -BC neg 5 days HIV -HIV reactive f/u HIV RNA, AB -f/u CD3/4 -r/o PNA -IV Abx: vanco zosyn, bactrim -ID consult, Dr. Beltran f/u recs Lymphadenopathy -Right neck , pathology shows fibroadipose tissue showing patchy acute and chronic inflammation -f/u bx 2/4 -3.0 TSH, 0.77 free T4 -LDH -f/u lymphocyte subset panel -urine cx -acetaminophen pain control
[2018-12-22 11:57] LABS: SQUAMOUS EPITHIAL 10 /hpf (0-5); URINE BILIRUBIN NEGATIVE (NEGATIVE); URINE BLOOD NEGATIVE (NEGATIVE); URINE CLARITY Hazy (Clear); URINE COLOR Yellow (YELLOW); URINE GLUCOSE (UA) NORMAL (Normal); URINE LEUKOCYTE ESTERASE NEG Leu/uL (Negative); URINE PROTEIN NEGATIVE (NEGATIVE); URINE UROBILINOGEN NORMAL mg/dL (0.2-1.0)
[2018-12-22] MEDS: Vancomycin 1 gm/NS 200 ml 1 GM/200 ML BAG IVPB SCH (17:14)
--- NOTE | 2018-12-23 02:06 | CON ---
DATE: 12/22/2018 INFECTIOUS DISEASE CONSULTATION REQUESTED BY: Keny Maldonado MD HISTORY OF PRESENT ILLNESS: This patient is a 28-year-old female. She has no past medical history. She came in with a worsening right neck pain and mass. She says there is no pain, but she has the swelling which has been growing in size for the last two months. She is from [facility] and she has been here for four years. She does give me history of one of her family person on father side had tuberculosis. She denies any contact with this person. She denies any fevers. No chills. No nausea. No vomiting. No chest pain. No shortness of breath. No abdominal pain. No other conditions and she had a biopsy done. We are waiting for the biopsy report also; however, her HIV tests also came back positive. She says she is , and she wants her to be tested which can be done from the clinic or from the primary doctor, I told her. She speaks mostly Divehi. She was surprised that she is HIV positive. Two months back, she had a spontaneous , and she says she had blood work done at that time. Past medical history is otherwise noncontributory. She did have . SOCIAL HISTORY: She has no history of EtOH, tobacco or drug abuse. She was also seen by Dr. Loja as they were suspecting lymphoma and Hodgkin's. PAST SURGICAL HISTORY: Significant for appendicectomy. FAMILY HISTORY: Noncontributory for any malignancy. PAST MEDICAL HISTORY: She never smoked. No history of fall. No psych history. Surgery was appendicectomy in 2010. ALLERGIES: SHE IS NOT ALLERGIC TO ANY MEDICINE. MEDICATIONS: Medications she took were Tylenol and Percocet. PHYSICAL EXAMINATION: GENERAL: I find she is awake and alert. Weight is 169. Height 5 feet 3 inches. VITAL SIGNS: T-max is 97.8, pulse 81, blood pressure 103/67, respirations are 18. HEENT: Head is atraumatic, normocephalic. Pupils are reacting to light. Tongue is moist. NECK: In the right neck, there are some matted lymph nodes. Left neck is unremarkable. Neck is supple. LUNGS: Clear. No crackles or rales present. HEART: S1 and S2 are regular. AXILLA: Has no lymphadenopathy. ABDOMEN: Soft, nontender. No guarding, no rigidity present. LABORATORY DATA: Labs are noted. White count is 3.5, hemoglobin 13.5, hematocrit is 39.3, platelet count is 242. BUN is 12, creatinine 0.6. She also had a TB test Gold QuantiFERON which is positive, and her HIV antibodies are reactive. They did hepatitis C, which is negative. RPR is nonreactive. ASSESSMENT AND PLAN: We will have to do further testing. This patient has tested positive for human immunodeficiency virus disease. She says she is and will need to also follow up for the testing. She had chest x-ray, abdominal and pelvic CT which showed large conglomerate lymphadenopathy in right mid and lower neck, moderate bilateral axillary lymphadenopathy, possibility of neoplasm such as lymphoma should be considered, mildly enlarged periaortic abdominal lymph nodes noticed, mild hepatomegaly, [id number] distended stomach of uncertain etiology. She does have variable areas of lymphadenopathy. I am not sure if those are related to lymphoma or tuberculosis as she has tuberculosis test positive or is this secondary to human immunodeficiency virus disease. Therefore, we ordered further testing for human immunodeficiency virus and wait for the pathology report before we start any kind of treatment for tuberculosis. If it is tuberculosis, we will have to contact the state department and start her on four antibiotics before we start to treat human immunodeficiency virus disease, but she will need a CD-4 count and human immunodeficiency virus viral load. We will order those if it has not been ordered. We will follow. Jeromy Beltran MD
[2018-12-23] MEDS: Piperacill/Tazo 3.375gm in Dex 3.375 GM/50 ML BAG IVPB SCH ×4 (05:40→22:20)
[2018-12-23] MEDS: Sulfamethoxazole/Trimethoprim 80 MG in Dextrose 5% In Water 100 ML IVPB SCH ×2 (09:08→20:16)
--- NOTE | 2018-12-23 10:39 | CP.PCM.PN ---
<Roger Burtonophe - Last Filed: 12/23/18 16:25> Subjective - Date & Time of Evaluation Date of Evaluation: 12/23/18 Time of Evaluation: 16:14 - Subjective Subjective: HOSPITALIST SERVICE Pt seen and examined at bedside, no complaints overnight. Pt was told her diagnosis of HIV and recommeded Family get tested as well, Pt understands and is cooperative. Pt also understands TB results are still pending final confirmations but she is required to wait until finalized and treated appropriately if need be. Pt denies CP SOB FC NV Objective - Vital Signs/Intake and Output Vital Signs (last 24 hours): Temp Pulse Resp BP Pulse Ox 98.4 F 74 20 110/74 100 12/23/18 07:00 12/23/18 07:00 12/23/18 07:00 12/23/18 07:00 12/23/18 07:00 Intake and Output: 12/23/18 12/23/18 06:59 18:59 Intake Total 700 Balance 700 - Medications Medications: Current Medications Acetaminophen (Tylenol 325mg Tab) 650 mg PO Q4 PRN PRN Reason: Pain, Mild (1-3) Piperacillin Sod/Tazobactam Sod (Zosyn 3.375 Gm Iv Premix) 3.375 gm in 50 mls @ 100 mls/hr IVPB Q6H ARSLAN; Protocol Last Admin: 12/23/18 05:40 Dose: 100 mls/hr Trimethoprim/Sulfamethoxazole (80 mg/ Dextrose) 100 mls @ 100 mls/hr IVPB Q12H ARSLAN; Protocol Last Admin: 12/23/18 09:08 Dose: 100 mls/hr Vancomycin/Sodium Chloride (Vancomycin 1 Gm/Ns 200 Ml) 1 gm in 200 mls @ 133 mls/hr IVPB Q24H ARSLAN; Protocol Stop: 12/26/18 17:01 Last Admin: 12/22/18 17:14 Dose: 133 mls/hr - Labs Labs: 12/18/18 11:06 12/18/18 11:06 - Additional Findings Additional findings: - Constitutional Appears: Non-toxic, No Acute Distress - Head Exam Head Exam: ATRAUMATIC, NORMAL INSPECTION, NORMOCEPHALIC - Eye Exam Eye Exam: EOMI, Normal appearance - ENT Exam ENT Exam: Mucous Membranes Moist, Normal Exam - Neck Exam Neck exam: Positive for: Lymphadenopathy (right neck), Tenderness. Negative for: Thyromegaly - Respiratory Exam Respiratory Exam: Clear to Auscultation Bilateral, NORMAL BREATHING PATTERN. absent: Rales, Rhonchi, Wheezes - Cardiovascular Exam Cardiovascular Exam: REGULAR RHYTHM, +S1, +S2. absent: Tachycardia - GI/Abdominal Exam GI & Abdominal Exam: Normal Bowel Sounds, Soft. absent: Distended, Tenderness - Extremities Exam Extremities exam: Positive for: normal inspection. Negative for: calf tenderness, pedal edema - Neurological Exam Neurological exam: Alert, Normal Gait, Oriented x3 - Psychiatric Exam Psychiatric exam: Normal Affect, Normal Mood - Skin Skin Exam: Dry, Intact, Normal Color, Warm Assessment and Plan - Assessment and Plan (Free Text) Plan: 28 year old female admitted for evaluation of acute lymphadenopathy of right neck, found to test positive for HIV and TB Plan: TB -Quaniteron positive -f/u PPD -f/u sputum cx for AFB: ordered induced -isolation precautions -Chest CT: no acute pathology -ID consult, Dr. Beltran -BC neg 5 days HIV -HIV reactive elevated HIV RNA, AB -Low CD3/4 -IV Abx: vanco zosyn, bactrim -ID consult, Dr. Beltran f/u recs f/u when to start anti retrovirals Lymphadenopathy -Right neck , pathology shows fibroadipose tissue showing patchy acute and chronic inflammation -f/u bx 2/4 -3.0 TSH, 0.77 free T4 -LDH -f/u lymphocyte subset panel -urine cx -acetaminophen pain control PPx: -Regular Diet -PPS for VTE scor 6: Heparin 5000u sc q8 -No GI ppx indicated <Norris Comer - Last Filed: 12/23/18 16:49> Objective - Vital Signs/Intake and Output Vital Signs (last 24 hours): Temp Pulse Resp BP Pulse Ox 98.4 F 74 20 110/74 100 12/23/18 07:00 12/23/18 07:00 12/23/18 07:00 12/23/18 07:00 12/23/18 07:00 Intake and Output: 12/23/18 12/23/18 06:59 18:59 Intake Total 700 Balance 700 - Medications Medications: Current Medications Acetaminophen (Tylenol 325mg Tab) 650 mg PO Q4 PRN PRN Reason: Pain, Mild (1-3) Heparin Sodium (Porcine) (Heparin) 5,000 units SC Q8 ARSLAN Piperacillin Sod/Tazobactam Sod (Zosyn 3.375 Gm Iv Premix) 3.375 gm in 50 mls @ 100 mls/hr IVPB Q6H ARSLAN; Protocol Last Admin: 12/23/18 16:10 Dose: 100 mls/hr Trimethoprim/Sulfamethoxazole (80 mg/ Dextrose) 100 mls @ 100 mls/hr IVPB Q12H ARSLAN; Protocol Last Admin: 12/23/18 09:08 Dose: 100 mls/hr Vancomycin/Sodium Chloride (Vancomycin 1 Gm/Ns 200 Ml) 1 gm in 200 mls @ 133 mls/hr IVPB Q24H ARSLAN; Protocol Stop: 12/26/18 17:01 Last Admin: 12/22/18 17:14 Dose: 133 mls/hr - Labs Labs: 12/23/18 10:34 12/23/18 10:34 Attending/Attestation - Attestation I have personally seen and examined this patient.: Yes I have fully participated in the care of the patient.: Yes I have reviewed all pertinent clinical information, including history, physical exam and plan: Yes Notes (Text): 12/23/18 16:47 Medical attending: Patient was seen and examined by me. Agree with the above note by the resident The patient was not in any acute distress when I came and saw her with the resident We again discussed her HIV and the viral load. We are still pending sptum AFB stain and cultures She had a lot of questions and we had translation with help of the behavioral medical director For the time being the patient is on IV abx and IV bactrim The second biopsy pathology has not returned yet Norris Comer
[2018-12-23 10:43] LABS: BASO % 0.3 % (0.0-2.0); EOS % 0.4 % (0.0-4.0); HEMOGLOBIN 12.8 g/dL (11.0-16.0); LYMPH # 1.1 K/uL (1.0-4.3); LYMPH % 33.3 % (20.0-40.0); MEAN CORPUSCULAR HEMOGLOBIN 31.1 pg (27.0-31.0); MEAN CORPUSCULAR HGB CONC 34.2 g/dL (33.0-37.0); MEAN PLATELET VOLUME 7.4 fL (7.2-11.7); MONO # 0.4 K/uL (0.0-0.8); MONO % 11.6 % (0.0-10.0); NEUT # 1.9 K/uL (1.8-7.0); NEUT % 54.4 % (50.0-75.0); NRBC % 0.2 % (0.0-2.0); RBC 4.12 Mil/uL (3.80-5.20); RED CELL DISTRIBUTION WIDTH 12.6 % (11.5-14.5); WHITE BLOOD COUNT 3.4 K/uL (4.8-10.8)
[2018-12-23 11:03] LABS: ALB/GLOB RATIO 0.8 (1.0-2.1); ALT/SGPT 17 U/L (9-52); AST/SGOT 30 U/L (14-36); BLOOD UREA NITROGEN 10 mg/dL (7-17); CALCIUM 8.7 mg/dl (8.6-10.4); GFR NON-AFRICAN AMERICAN > 60
[2018-12-23 12:36] LABS: % CD4 (T HELPER CELL) 18 Percent (30-61); % CD8 (SUPPRESSOR T CELL) 61 Percent (12-42); ABSOLUTE CD19 CELLS 84 Cells/mcL (110-660); ABSOLUTE CD3 CELLS 1395 Cells/mcL (840-3060); ABSOLUTE CD4 CELLS 321 Cells/mcL (490-1740); ABSOLUTE CD8 CELLS 1113 Cells/mcL (180-1170); ABSOLUTE LYMPHOCYTES 1734 Cells/mcL (850-3900); HELPER/SUPPRESSOR RATIO 0.29 Ratio (0.86-5.00)
--- NOTE | 2018-12-23 14:41 | OP ---
PROCEDURE DATE: 12/18/2018 SURGEON: Donell Allan MD ACCOUNTS COLLECTOR: Jannie King DO ANESTHESIA: General LMA. ANESTHESIOLOGIST: Brandie Rivera CRNA and Roscoe Costa MD. PREOPERATIVE DIAGNOSES: Lymphadenopathy and right neck mass. POSTOPERATIVE DIAGNOSES: Lymphadenopathy and right neck mass. PROCEDURE: Core needle biopsy of right neck mass. DESCRIPTION OF OPERATION: With the patient in the supine position under adequate general anesthesia, the right neck was prepped and draped in usual sterile manner. The patient had swelling noted deep to the sternocleidomastoid in the lower portion of the neck and after a small skin deidra was made, a 20-gauge Puneet-Cut needle was aimed into the mass and advanced with care taken to maintain an angle parallel to the axis of the neck to avoid vessel injury. Multiple core samples were taken, although it was noted to be difficult to advance the needle and small cores of what appear to be white tissue were accessed. These were sent to pathology and were felt to be skin and muscle and additional cores were taken using an automatic biopsy needle. These were also felt to represent skin and muscle tissue and at this point, the procedure was terminated with the determination that image-guided biopsy would be performed and it was felt that deeper point biopsy in the neck was inadvisable. The patient tolerated the procedure well and transferred to the recovery room in stable condition. Estimated blood loss for the procedure was 5 mL. Donell Allan MD
[2018-12-23] MEDS: Vancomycin 1 gm/NS 200 ml 1 GM/200 ML BAG IVPB SCH (16:55)
[2018-12-23 19:17] LABS: % CD4 (T HELPER CELL) 19 Percent (30-61); % CD8 (SUPPRESSOR T CELL) 58 Percent (12-42); ABSOLUTE CD3 CELLS 1068 Cells/mcL (840-3060); ABSOLUTE CD4 CELLS 265 Cells/mcL (490-1740); ABSOLUTE CD8 CELLS 799 Cells/mcL (180-1170); ABSOLUTE LYMPHOCYTES 1367 Cells/mcL (850-3900); HELPER/SUPPRESSOR RATIO 0.33 Ratio (0.86-5.00)
[2018-12-24] MEDS: Piperacill/Tazo 3.375gm in Dex 3.375 GM/50 ML BAG IVPB SCH ×4 (04:57→22:07)
--- NOTE | 2018-12-24 07:32 | CP.PCM.PN ---
<Daquan Burton - Last Filed: 12/24/18 14:27> Subjective - Date & Time of Evaluation Date of Evaluation: 12/24/18 Time of Evaluation: 14:27 - Subjective Subjective: HOSPITALIST SERVICE Pt s/e at bedside. still contact and airborne precautions. Pt still concerned about her results of bx. Pt denies any acute symptoms overnight, neck is still painless, feels equal in size, denies any chest pain, SOB, FC NV or nightsweats Objective - Vital Signs/Intake and Output Vital Signs (last 24 hours): Temp Pulse Resp BP Pulse Ox 97.9 F 78 20 105/69 97 12/23/18 23:30 12/23/18 23:30 12/23/18 23:30 12/23/18 23:30 12/23/18 23:30 - Medications Medications: Current Medications Acetaminophen (Tylenol 325mg Tab) 650 mg PO Q4 PRN PRN Reason: Pain, Mild (1-3) Heparin Sodium (Porcine) (Heparin) 5,000 units SC Q8 ARSLAN Last Admin: 12/24/18 07:09 Dose: 5,000 units Piperacillin Sod/Tazobactam Sod (Zosyn 3.375 Gm Iv Premix) 3.375 gm in 50 mls @ 100 mls/hr IVPB Q6H ARSLAN; Protocol Last Admin: 12/24/18 04:57 Dose: 100 mls/hr Trimethoprim/Sulfamethoxazole (80 mg/ Dextrose) 100 mls @ 100 mls/hr IVPB Q12H ARSLAN; Protocol Last Admin: 12/23/18 20:16 Dose: 100 mls/hr Vancomycin/Sodium Chloride (Vancomycin 1 Gm/Ns 200 Ml) 1 gm in 200 mls @ 133 mls/hr IVPB Q24H ARSLAN; Protocol Stop: 12/26/18 17:01 Last Admin: 12/23/18 16:55 Dose: 133 mls/hr - Labs Labs: 12/23/18 10:34 12/23/18 10:34 - Additional Findings Additional findings: - Constitutional Appears: Non-toxic, No Acute Distress - Head Exam Head Exam: ATRAUMATIC, NORMAL INSPECTION, NORMOCEPHALIC - Eye Exam Eye Exam: EOMI, Normal appearance - ENT Exam ENT Exam: Mucous Membranes Moist, Normal Exam - Neck Exam Neck exam: Positive for: Lymphadenopathy (right neck), Tenderness. Negative for: Thyromegaly - Respiratory Exam Respiratory Exam: Clear to Auscultation Bilateral, NORMAL BREATHING PATTERN. absent: Rales, Rhonchi, Wheezes - Cardiovascular Exam Cardiovascular Exam: REGULAR RHYTHM, +S1, +S2. absent: Tachycardia - GI/Abdominal Exam GI & Abdominal Exam: Normal Bowel Sounds, Soft. absent: Distended, Tenderness - Extremities Exam Extremities exam: Positive for: normal inspection. Negative for: calf tendern ess, pedal edema - Neurological Exam Neurological exam: Alert, Normal Gait, Oriented x3 - Psychiatric Exam Psychiatric exam: Normal Affect, Normal Mood - Skin Skin Exam: Dry, Intact, Normal Color, Warm Assessment and Plan - Assessment and Plan (Free Text) Assessment: 28 year old female admitted for evaluation of acute lymphadenopathy of right neck, found to test positive for HIV and TB Plan: TB -Quaniteron positive -f/u PPD -f/u sputum cx for AFB: ordered induced -isolation precautions -Chest CT: no acute pathology -ID consult, Dr. Beltran -BC neg 5 days HIV -HIV reactive elevated HIV RNA, AB -Low CD3/4 -IV Abx: vanco zosyn, bactrim -ID consult, Dr. Beltran f/u recs f/u when to start anti retrovirals Lymphadenopathy -Right neck , pathology shows fibroadipose tissue showing patchy acute and chr onic inflammation -f/u bx 2/4 -3.0 TSH, 0.77 free T4 -LDH -f/u lymphocyte subset panel -urine cx pos Staph A -acetaminophen pain control UTI -UC pos Staph A: likely contamination, however pt is immunocompromised -Repeat ordered -Bactrim IVPB PPx: -Regular Diet -PPS for VTE scor 6: Heparin 5000u sc q8 -No GI ppx indicated <Norris Comer - Last Filed: 12/24/18 16:48> Objective - Vital Signs/Intake and Output Vital Signs (last 24 hours): Temp Pulse Resp BP Pulse Ox 97.5 F L 82 20 121/70 97 12/24/18 16:25 12/24/18 16:25 12/24/18 16:25 12/24/18 16:25 12/24/18 16:25 - Medications Medications: Current Medications Acetaminophen (Tylenol 325mg Tab) 650 mg PO Q4 PRN PRN Reason: Pain, Mild (1-3) Heparin Sodium (Porcine) (Heparin) 5,000 units SC Q8 ARSLAN Last Admin: 12/24/18 14:26 Dose: 5,000 units Piperacillin Sod/Tazobactam Sod (Zosyn 3.375 Gm Iv Premix) 3.375 gm in 50 mls @ 100 mls/hr IVPB Q6H ARSLAN; Protocol Last Admin: 12/24/18 11:40 Dose: 100 mls/hr Trimethoprim/Sulfamethoxazole (80 mg/ Dextrose) 100 mls @ 100 mls/hr IVPB Q12H ARSLAN; Protocol Last Admin: 12/24/18 11:39 Dose: 100 mls/hr Vancomycin/Sodium Chloride (Vancomycin 1 Gm/Ns 200 Ml) 1 gm in 200 mls @ 133 mls/hr IVPB Q24H ARSLAN; Protocol Stop: 12/26/18 17:01 Last Admin: 12/23/18 16:55 Dose: 133 mls/hr - Labs Labs: 12/24/18 09:00 12/24/18 09:00 APTT 45 SECONDS (21-34) H 12/24/18 09:00 Attending/Attestation - Attestation I have personally seen and examined this patient.: Yes I have fully participated in the care of the patient.: Yes I have reviewed all pertinent clinical information, including history, physical exam and plan: Yes Notes (Text): 12/24/18 16:47 Medical attending: Patient was seen and examined by me with the health care / medical job titles Reviewed the above note by the resident and agree with the above The patient was not in any acute distress when we came and saw The second biopsy is still pending at this moment She was able to cough and produce sptum for AFB stain/culture Norris Comer
[2018-12-24 09:16] LABS: BASO % 0.3 % (0.0-2.0); EOS % 0.6 % (0.0-4.0); HEMOGLOBIN 12.5 g/dL (11.0-16.0); LYMPH % 31.7 % (20.0-40.0); MEAN CELL VOLUME 91.3 fL (81.0-99.0); MEAN CORPUSCULAR HEMOGLOBIN 31.3 pg (27.0-31.0); MEAN CORPUSCULAR HGB CONC 34.2 g/dL (33.0-37.0); MEAN PLATELET VOLUME 7.6 fL (7.2-11.7); MONO # 0.4 K/uL (0.0-0.8); MONO % 13.4 % (0.0-10.0); NEUT # 1.7 K/uL (1.8-7.0); RBC 3.99 Mil/uL (3.80-5.20); RED CELL DISTRIBUTION WIDTH 13.2 % (11.5-14.5); WHITE BLOOD COUNT 3.2 K/uL (4.8-10.8)
[2018-12-24 09:30] LABS: ALB/GLOB RATIO 0.8 (1.0-2.1); ALBUMIN 3.9 g/dL (3.5-5.0); ALT/SGPT 11 U/L (9-52); AST/SGOT 31 U/L (14-36); BLOOD UREA NITROGEN 8 mg/dL (7-17); CALCIUM 8.7 mg/dl (8.6-10.4); GFR NON-AFRICAN AMERICAN > 60
[2018-12-24] MEDS: Sulfamethoxazole/Trimethoprim 80 MG in Dextrose 5% In Water 100 ML IVPB SCH ×2 (11:39→21:04)
[2018-12-24] MEDS: Vancomycin 1 gm/NS 200 ml 1 GM/200 ML BAG IVPB SCH (17:01)
--- NOTE | 2018-12-24 19:38 | PN ---
DATE: 12/24/2018 SUBJECTIVE: The patient is waiting for the biopsy report. She is HIV, I told her and she says she was twice. One [facility] the [facility] and this one is the second . For the also, he was twice and this is his second marriage. They have five people who live together in the home, her mom, her two kids, she and her . The patient is cooperative and wants to be treated, but we are still waiting for the treatment as we do not know if this is due to TB or other source. Her TB test is positive and she also has HIV disease. PHYSICAL EXAMINATION: VITAL SIGNS: T-max is 97.9, pulse 73, blood pressure 103/65, respirations are 20. HEENT: Head is atraumatic, normocephalic. NECK: Supple. She has a right neck mass and also lymphadenopathy. LUNGS: Clear. No crackles or rales present. HEART: S1 and S2, regular. ABDOMEN: Soft, nontender. No guarding, no rigidity present. EXTREMITIES: Have no edema. LABORATORY DATA: Labs are noted. Labs show white count is 3.2, hemoglobin 12.5, hematocrit 36.4, platelet count is 249. Anion gap is 9. UA is negative. ASSESSMENT AND PLAN: The CD4 came back and the CD4 is 321 before and 265. She is not yet aged, but has human immunodeficiency virus disease and her viral load is 44,700. Rapid plasma reagin is negative and the patient's pathology report is pending at this time. She does have lymphadenopathy in other areas also, but it could be related to human immunodeficiency virus disease and pathology of this is important. I will be back on Friday to follow this case. Otherwise, Dr. Whitfield will be covering me. If need be, then he can be called if the reports are in. Continue present treatment. Her urine had Staphylococcus aureus and this Staphylococcus aureus was also penicillin resistant and vancomycin sensitive, so continue that and also since Staphylococcus is positive in the urine, I would also do an echocardiogram to rule out any vegetation. She does not have any Quiroz catheter, but recently she told me two months ago she had a spontaneous . We will follow. Jeromy Beltran MD [facility] # [id number]
[2018-12-25] MEDS: Piperacill/Tazo 3.375gm in Dex 3.375 GM/50 ML BAG IVPB SCH ×4 (03:57→21:51)
--- NOTE | 2018-12-25 07:11 | CP.PCM.PN ---
<Jennifer Gutierrez - Last Filed: 12/25/18 14:24> Subjective - Date & Time of Evaluation Date of Evaluation: 12/25/18 Time of Evaluation: 06:56 - Subjective Subjective: PGY-1 Jennifer Gutierrez D.O. Medicine progress note for Dr. Comer's service: Patient was seen and examined this morning. She is sitting up in bed, no acute distress. She currently has no complaints but is eager to find out the results of pending tests. She denies cough and SOB- was able to produce sputum via induction by RT. She denies neck pain or traouble breathing, talking, or swallowing. Denies fevers, chills, and night sweats. Objective - Vital Signs/Intake and Output Vital Signs (last 24 hours): Temp Pulse Resp BP Pulse Ox 97.8 F 80 18 108/62 95 12/24/18 23:48 12/24/18 23:48 12/24/18 23:48 12/24/18 23:48 12/24/18 23:48 Intake and Output: 12/24/18 12/25/18 18:59 06:59 Intake Total 500 Balance 500 - Medications Medications: Current Medications Acetaminophen (Tylenol 325mg Tab) 650 mg PO Q4 PRN PRN Reason: Pain, Mild (1-3) Heparin Sodium (Porcine) (Heparin) 5,000 units SC Q8 ARSLAN Last Admin: 12/25/18 06:37 Dose: 5,000 units Piperacillin Sod/Tazobactam Sod (Zosyn 3.375 Gm Iv Premix) 3.375 gm in 50 mls @ 100 mls/hr IVPB Q6H ARSLAN; Protocol Last Admin: 12/25/18 03:57 Dose: 100 mls/hr Trimethoprim/Sulfamethoxazole (80 mg/ Dextrose) 100 mls @ 100 mls/hr IVPB Q12H ARSLAN; Protocol Last Admin: 12/24/18 21:04 Dose: 100 mls/hr - Labs Labs: 12/24/18 09:00 12/24/18 09:00 APTT 45 SECONDS (21-34) H 12/24/18 09:00 - Constitutional Appears: Non-toxic, No Acute Distress - Head Exam Head Exam: ATRAUMATIC, NORMAL INSPECTION - Eye Exam Eye Exam: EOMI, Normal appearance - Neck Exam Neck Exam: Lymphadenopathy. absent: Tenderness, Thyromegaly Additional comments: large R-sided neck mass, bandage over biopsy site - Respiratory Exam Respiratory Exam: Clear to Ausculation Bilateral, NORMAL BREATHING PATTERN. absent: Respiratory Distress - Cardiovascular Exam Cardiovascular Exam: RRR, +S1, +S2 - GI/Abdominal Exam GI & Abdominal Exam: Soft. absent: Distended, Tenderness - Extremities Exam Extremities Exam: Normal Inspection - Neurological Exam Neurological Exam: Alert, Awake, Oriented x3 - Psychiatric Exam Psychiatric exam: Normal Affect, Normal Mood - Skin Skin Exam: Dry, Normal Color, Warm Assessment and Plan - Assessment and Plan (Free Text) Assessment: Patient is a 28 yo female who presented for enlarging right-sided neck mass. Patient subsequently tested positive for both HIV and TB (QFT). Patient is un aware how she may have contracted HIV. She reports a spontaneous approximately 3 months prior to this admission, and, according to patient, she tested negative for HIV at that time. Imaging has demonstrated extensive lymphadenopathy. First mass biopsy was negative. Pending results of 2nd biopsy. Patient denies any active TB symptoms, including fever, night sweats, hemoptysis, weight loss, and imaging does not show any cavitary lesions. Patient is in airborne isolation pending AFB sputum results. Plan: Tuberculosis - Quantiferon positive - PPD negative - AFB sputum x3 pending- 1 sample submitted thus far - Airborne isolation - CT chest: no cavitary lesions - Blood Cx negative - ID consulted (Devin) HIV - HIV-1 Ab positive - HIV-1 RNA copies/mL 44,700, logcopies/mL 4.65 - WBC 3.8 - LDH 516 - CD4 265 (19%) - CD8 799 (58%) - Hepatitis panel negative - RPR neagtive - Cryptococcus negative - Blood Cx negative - f/u echo - IV Abx: vanco zosyn, bactrim - ID consulted (Devin) Lymphadenopathy- extensive, chief complaint of R neck mass - CT neck: extensive cervical and supraclavicular lymphadenopathy suspicious for neoplasm such as lymphoma - CT C/A/P: right neck lymphadenopathy, bilateral axillary lymphadenopathy, periaortic upper abdominal lymphadenopathy, distended stomach, mild hepatomegaly - 1st Bx (12/16): fibroadipose tissue showing patchy acute and chronic inflamm ation, fat necrosis, no lymph tissue or malignancy - 2nd Bx (12/21) pathology pending - ESR 92 - Tylenol PRN - IR consulted (Warren) - Surgery consulted (Jerrell) - Hematology/oncology consulted (Freedom) Asymptomatic bacteriuria - UCx: Staph aureus (50,000-100,000 colonies), suspect contamination but patient is immunocompromised - Repeat UA and UCx pending - Bactrim 80 mg IV Q12H- started 12/21 PPx: VTE: SCDs, Heparin 5000 u SC Q8H GI: not indicated Code status: full code Dispo: Patient needs to remain on isolation until AFB sputum results. As per ID, patient will need RIPE therapy before antivirals if she is truly positive for TB. Additionally, pending Bx results of neck mass. Case discussed with attending, Dr. Comer. <Norris Comer - Last Filed: 12/25/18 16:07> Objective - Vital Signs/Intake and Output Vital Signs (last 24 hours): Temp Pulse Resp BP Pulse Ox 97.7 F 74 20 111/70 95 12/25/18 15:46 12/25/18 15:46 12/25/18 15:46 12/25/18 15:46 12/25/18 15:46 Intake and Output: 12/25/18 12/25/18 06:59 18:59 Intake Total 500 Balance 500 - Medications Medications: Current Medications Acetaminophen (Tylenol 325mg Tab) 650 mg PO Q4 PRN PRN Reason: Pain, Mild (1-3) Heparin Sodium (Porcine) (Heparin) 5,000 units SC Q8 ARSLAN Last Admin: 12/25/18 13:15 Dose: Not Given Piperacillin Sod/Tazobactam Sod (Zosyn 3.375 Gm Iv Premix) 3.375 gm in 50 mls @ 100 mls/hr IVPB Q6H ARSLAN; Protocol Last Admin: 12/25/18 10:22 Dose: 100 mls/hr Trimethoprim/Sulfamethoxazole (80 mg/ Dextrose) 100 mls @ 100 mls/hr IVPB Q12H ARSLAN; Protocol Last Admin: 12/25/18 12:10 Dose: 100 mls/hr - Labs Labs: 12/25/18 07:49 12/25/18 07:49 APTT 45 SECONDS (21-34) H 12/24/18 09:00 Attending/Attestation - Attestation I have personally seen and examined this patient.: Yes I have fully participated in the care of the patient.: Yes I have reviewed all pertinent clinical information, including history, physical exam and plan: Yes Notes (Text): 12/25/18 16:06 Medical attending: Patient was seen and examined by me. Agree with the above note by the resident Unfourtunately we are still pending the second biopsy to result. She was able to provide a sputum stain/culture AFB She does have guest in room and we have repeatedly had to educate them to use the correct mask Norris Comer
[2018-12-25 07:54] LABS: BASO % 0.6 % (0.0-2.0); EOS % 0.6 % (0.0-4.0); LYMPH # 1.6 K/uL (1.0-4.3); LYMPH % 41.3 % (20.0-40.0); MEAN CELL VOLUME 91.1 fL (81.0-99.0); MEAN CORPUSCULAR HEMOGLOBIN 33.2 pg (27.0-31.0); MEAN CORPUSCULAR HGB CONC 36.4 g/dL (33.0-37.0); MEAN PLATELET VOLUME 7.7 fL (7.2-11.7); MONO # 0.5 K/uL (0.0-0.8); MONO % 13.3 % (0.0-10.0); NEUT # 1.7 K/uL (1.8-7.0); NEUT % 44.2 % (50.0-75.0); NRBC % 0.1 % (0.0-2.0); RBC 3.62 Mil/uL (3.80-5.20); RED CELL DISTRIBUTION WIDTH 12.9 % (11.5-14.5); WHITE BLOOD COUNT 3.8 K/uL (4.8-10.8)
[2018-12-25 08:29] LABS: ALB/GLOB RATIO 0.8 (1.0-2.1); ALT/SGPT 21 U/L (9-52); AST/SGOT 28 U/L (14-36); BLOOD UREA NITROGEN 13 mg/dL (7-17); CALCIUM 8.8 mg/dl (8.6-10.4); GFR NON-AFRICAN AMERICAN > 60
[2018-12-25] MEDS: Sulfamethoxazole/Trimethoprim 80 MG in Dextrose 5% In Water 100 ML IVPB SCH ×2 (12:10→20:35)
[2018-12-25 16:06] LABS: SQUAMOUS EPITHIAL 30 /hpf (0-5); URINE BACTERIA RARE (<OCC); URINE BILIRUBIN NEGATIVE (NEGATIVE); URINE BLOOD NEGATIVE (NEGATIVE); URINE CLARITY Hazy (Clear); URINE COLOR Yellow (YELLOW); URINE GLUCOSE (UA) NORMAL (Normal); URINE LEUKOCYTE ESTERASE 2+ Leu/uL (Negative); URINE PROTEIN NEGATIVE (NEGATIVE); URINE UROBILINOGEN NORMAL mg/dL (0.2-1.0)
--- NOTE | 2018-12-25 18:21 | CARD ---
APPROVED REPORT Date of service: 12/25/2018 EXAM: Two-dimensional and M-mode echocardiogram with Doppler and color Doppler. Other Information Quality : GoodRhythm : INDICATION Pre-Op Neck Mass 2D DIMENSIONS IVC0.00 cm M-Mode DIMENSIONS RVDd1.85 (2.1-3.2cm)Left Atrium (MM)3.32 (2.5-4.0cm) IVSd0.72 (0.7-1.1cm)Aortic Root2.80 (2.2-3.7cm) LVDd5.11 (4.0-5.6cm)Aortic Cusp Exc.1.85 (1.5-2.0cm) PWd0.72 (0.7-1.1cm)FS (%) 39 % LVDs3.12 (2.0-3.8cm)LVEF (%)69 (>50%) Mitral Valve MV E Uwuwfhwj20.7cm/sMV A Vkwwquta88.0cm/sE/A ratio1.1 TDI Lateral E' Peak V18.97cm/sMedial E' Peak V9.19cm/sE/Lateral E'2.3 E/Medial E'4.6 Tricuspid Valve TR Peak [id number] <Conclusion> normal size la,lv & ra rv. normal lv wall motion,thickness,systolic & diastolic function with lvef of 60-65%. normal aortic,mitral,tv & pv. trace tr,. suspicious for pfo. normal size aortic root & ivc. no pericrdial effusion seen.
--- NOTE | 2018-12-26 03:57 | CP.PCM.PN ---
<Rakesh Bustillo - Last Filed: 12/26/18 03:54> Subjective - Date & Time of Evaluation Date of Evaluation: 12/26/18 Time of Evaluation: 03:54 - Subjective Subjective: PGY-1 Medicine Progress Note for Dr. Comer's service S/E at bedside. No acute complaints. Wants to knows results of tests Denies fevers, chills, chest pain, sob, n/v, constipation or diarrhea, and dysuria, and cough. Objective - Vital Signs/Intake and Output Vital Signs (last 24 hours): Temp Pulse Resp BP Pulse Ox 98.0 F 77 20 106/61 99 12/26/18 00:00 12/26/18 00:00 12/26/18 00:00 12/26/18 00:00 12/26/18 00:00 - Medications Medications: Current Medications Acetaminophen (Tylenol 325mg Tab) 650 mg PO Q4 PRN PRN Reason: Pain, Mild (1-3) Heparin Sodium (Porcine) (Heparin) 5,000 units SC Q8 ARSLAN Last Admin: 12/25/18 21:50 Dose: Not Given Piperacillin Sod/Tazobactam Sod (Zosyn 3.375 Gm Iv Premix) 3.375 gm in 50 mls @ 100 mls/hr IVPB Q6H ARSLAN; Protocol Last Admin: 12/25/18 21:51 Dose: 100 mls/hr Trimethoprim/Sulfamethoxazole (80 mg/ Dextrose) 100 mls @ 100 mls/hr IVPB Q12H ARSLAN; Protocol Last Admin: 12/25/18 20:35 Dose: 100 mls/hr - Labs Labs: 12/25/18 07:49 12/25/18 07:49 APTT 45 SECONDS (21-34) H 12/24/18 09:00 - Additional Findings Additional findings: - Constitutional Appears: Non-toxic, No Acute Distress - Head Exam Head Exam: ATRAUMATIC, NORMAL INSPECTION - Eye Exam Eye Exam: EOMI, Normal appearance - Neck Exam Neck Exam: Lymphadenopathy. absent: Tenderness, Thyromegaly Additional comments: large R-sided neck mass, bandage over biopsy site - Respiratory Exam Respiratory Exam: Clear to Ausculation Bilateral, NORMAL BREATHING PATTERN. absent: Respiratory Distress - Cardiovascular Exam Cardiovascular Exam: RRR, +S1, +S2 - GI/Abdominal Exam GI & Abdominal Exam: Soft. absent: Distended, Tenderness - Extremities Exam Extremities Exam: Normal Inspection - Neurological Exam Neurological Exam: Alert, Awake, Oriented x3 - Psychiatric Exam Psychiatric exam: Normal Affect, Normal Mood - Skin Skin Exam: Dry, Normal Color, Warm Assessment and Plan - Assessment and Plan (Free Text) Assessment: Patient is a 28 yo female who presented for enlarging right-sided neck mass. Patient subsequently tested positive for both HIV and TB (QFT). Patient is unaware how she may have contracted HIV. She reports a spontaneous approximately 3 months prior to this admission, and, according to patient, she tested negative for HIV at that time. Imaging has demonstrated extensive lymphadenopathy. First mass biopsy was negative. Pending results of 2nd biopsy. Patient denies any active TB symptoms, including fever, night sweats, hemoptysis, weight loss, and imaging does not show any cavitary lesions. Patient is in airborne isolation pending AFB sputum results. Tuberculosis - Quantiferon positive - PPD negative - AFB sputum x3 pending- 1 sample submitted thus far - Airborne isolation - CT chest: no cavitary lesions - Blood Cx negative - ID consulted (Devin) HIV - HIV-1 Ab positive - HIV-1 RNA copies/mL 44,700, logcopies/mL 4.65 - WBC 3.8 - LDH 516 - CD4 265 (19%) - CD8 799 (58%) - Hepatitis panel negative - RPR neagtive - Cryptococcus negative - Blood Cx negative - Echo normal EF; suspicious for pfo; - IV Abx: vanco zosyn, bactrim - ID consulted (Devin) Lymphadenopathy- extensive, chief complaint of R neck mass - CT neck: extensive cervical and supraclavicular lymphadenopathy suspicious for neoplasm such as lymphoma - CT C/A/P: right neck lymphadenopathy, bilateral axillary lymphadenopathy, periaortic upper abdominal lymphadenopathy, distended stomach, mild hepatomegaly - 1st Bx (12/16): fibroadipose tissue showing patchy acute and chronic inflammation, fat necrosis, no lymph tissue or malignancy - 2nd Bx (12/21) pathology pending - ESR 92 - Tylenol PRN - IR consulted (Warren) - Surgery consulted (Jerrell) - Hematology/oncology consulted (Freedom) Asymptomatic bacteriuria - UCx: Staph aureus (50,000-100,000 colonies), suspect contamination but patient is immunocompromised - Repeat UA and UCx pending - Bactrim 80 mg IV Q12H- started 12/21 PPx: VTE: SCDs, Heparin 5000 u SC Q8H GI: not indicated Code status: full code Dispo: Patient needs to remain on isolation until AFB sputum results. As per ID, patient will need RIPE therapy before antivirals if she is truly positive for TB. Additionally, pending Bx results of neck mass. Case discussed with attending, Dr. Comer PGY-1 Rakesh Bustillo <Norris Comer H - Last Filed: 12/26/18 09:50> Objective - Vital Signs/Intake and Output Vital Signs (last 24 hours): Temp Pulse Resp BP Pulse Ox 97.9 F 83 18 112/80 98 12/26/18 07:30 12/26/18 07:30 12/26/18 07:30 12/26/18 07:30 12/26/18 07:30 - Medications Medications: Current Medications Acetaminophen (Tylenol 325mg Tab) 650 mg PO Q4 PRN PRN Reason: Pain, Mild (1-3) Heparin Sodium (Porcine) (Heparin) 5,000 units SC Q8 ARSLAN Last Admin: 12/26/18 05:33 Dose: 5,000 units Piperacillin Sod/Tazobactam Sod (Zosyn 3.375 Gm Iv Premix) 3.375 gm in 50 mls @ 100 mls/hr IVPB Q6H ARSLAN; Protocol Last Admin: 12/26/18 05:33 Dose: 100 mls/hr Trimethoprim/Sulfamethoxazole (80 mg/ Dextrose) 100 mls @ 100 mls/hr IVPB Q12H ARSLAN; Protocol Last Admin: 12/26/18 08:22 Dose: 100 mls/hr - Labs Labs: 12/26/18 07:01 12/26/18 07:01 APTT 45 SECONDS (21-34) H 12/24/18 09:00 Attending/Attestation - Attestation I have personally seen and examined this patient.: Yes I have fully participated in the care of the patient.: Yes I have reviewed all pertinent clinical information, including history, physical exam and plan: Yes Notes (Text): 12/26/18 09:48 Medical attending: Patient was seen and examined by me. Reviewed the above note by the resident Today reflector driller and deburrer was not readily available so our conversation was limited But I indicated to her that the first sptum AFB stain was negative - I doubt she understands my limited Uzbek. We are pending additional AFB stain/culture She thinks she will be going home soon however in the past we explained to her that this may take some time Norris Comer
[2018-12-26] MEDS: Piperacill/Tazo 3.375gm in Dex 3.375 GM/50 ML BAG IVPB SCH ×4 (05:33→23:40)
[2018-12-26 07:29] LABS: BASO % 0.4 % (0.0-2.0); EOS % 0.4 % (0.0-4.0); HEMOGLOBIN 12.5 g/dL (11.0-16.0); LYMPH # 1.2 K/uL (1.0-4.3); LYMPH % 33.5 % (20.0-40.0); MEAN CORPUSCULAR HEMOGLOBIN 31.2 pg (27.0-31.0); MEAN CORPUSCULAR HGB CONC 34.3 g/dL (33.0-37.0); MEAN PLATELET VOLUME 7.8 fL (7.2-11.7); MONO # 0.5 K/uL (0.0-0.8); MONO % 12.7 % (0.0-10.0); NRBC % 0.1 % (0.0-2.0); RBC 4.01 Mil/uL (3.80-5.20); RED CELL DISTRIBUTION WIDTH 12.8 % (11.5-14.5); WHITE BLOOD COUNT 3.7 K/uL (4.8-10.8)
[2018-12-26 07:42] LABS: ALB/GLOB RATIO 0.8 (1.0-2.1); ALBUMIN 4.1 g/dL (3.5-5.0); ALT/SGPT 20 U/L (9-52); AST/SGOT 40 U/L (14-36); BLOOD UREA NITROGEN 12 mg/dL (7-17); CALCIUM 8.8 mg/dl (8.6-10.4); GFR NON-AFRICAN AMERICAN > 60
[2018-12-26] MEDS: Sulfamethoxazole/Trimethoprim 80 MG in Dextrose 5% In Water 100 ML IVPB SCH ×2 (08:22→20:34)
--- NOTE | 2018-12-27 01:16 | CP.PCM.PN ---
<Rakesh Bustillo - Last Filed: 12/27/18 00:51> Subjective - Date & Time of Evaluation Date of Evaluation: 12/27/18 Time of Evaluation: 00:51 - Subjective Subjective: PGY-1 Medicine Progress Note for Dr. Comer's service S/E at bedside. Offers no clinical complaints. Expresses desire to go home. Denies fevers, chills, chest pain, sob, n/v, constipation or diarrhea, and dysuria. Objective - Vital Signs/Intake and Output Vital Signs (last 24 hours): Temp Pulse Resp BP Pulse Ox 98.1 F 88 20 104/66 96 12/27/18 00:00 12/27/18 00:00 12/27/18 00:00 12/27/18 00:00 12/27/18 00:00 Intake and Output: 12/26/18 12/27/18 18:59 06:59 Intake Total 980 150 Balance 980 150 - Medications Medications: Current Medications Acetaminophen (Tylenol 325mg Tab) 650 mg PO Q4 PRN PRN Reason: Pain, Mild (1-3) Enoxaparin Sodium (Lovenox) 40 mg SC DAILY ARSLAN Piperacillin Sod/Tazobactam Sod (Zosyn 3.375 Gm Iv Premix) 3.375 gm in 50 mls @ 100 mls/hr IVPB Q6H ARSLAN; Protocol Last Admin: 12/26/18 16:22 Dose: 100 mls/hr Trimethoprim/Sulfamethoxazole (80 mg/ Dextrose) 100 mls @ 100 mls/hr IVPB Q12H ARSLAN; Protocol Last Admin: 12/26/18 20:34 Dose: 100 mls/hr - Labs Labs: 12/26/18 07:01 12/26/18 07:01 APTT 45 SECONDS (21-34) H 12/24/18 09:00 - Additional Findings Additional findings: - Constitutional Appears: Non-toxic, No Acute Distress - Head Exam Head Exam: ATRAUMATIC, NORMAL INSPECTION - Eye Exam Eye Exam: EOMI, Normal appearance - Neck Exam Neck Exam: Lymphadenopathy. absent: Tenderness, Thyromegaly Additional comments: large R-sided neck mass, bandage over biopsy site - Respiratory Exam Respiratory Exam: Clear to Ausculation Bilateral, NORMAL BREATHING PATTERN. absent: Respiratory Distress - Cardiovascular Exam Cardiovascular Exam: RRR, +S1, +S2 - GI/Abdominal Exam GI & Abdominal Exam: Soft. absent: Distended, Tenderness - Extremities Exam Extremities Exam: Normal Inspection - Neurological Exam Neurological Exam: Alert, Awake, Oriented x3 - Psychiatric Exam Psychiatric exam: Normal Affect, Normal Mood - Skin Skin Exam: Dry, Normal Color, Warm Assessment and Plan - Assessment and Plan (Free Text) Assessment: Patient is a 28 yo female who presented for enlarging right-sided neck mass. Patient subsequently tested positive for both HIV and TB (QFT). Patient is unaware how she may have contracted HIV. She reports a spontaneous approximately 3 months prior to this admission, and, according to patient, she tested negative for HIV at that time. Imaging has demonstrated extensive lymphadenopathy. First mass biopsy was negative. Pending results of 2nd biopsy. Patient denies any active TB symptoms, including fever, night sweats, hemoptysis, weight loss, and imaging does not show any cavitary lesions. Patient is in airborne isolation pending AFB sputum results. Tuberculosis - Quantiferon positive - PPD negative - AFB sputum x3 pending- 1 sputum negative; pending further 2 - Airborne isolation - CT chest: no cavitary lesions - Blood Cx negative - ID consulted (Devin) HIV - HIV-1 Ab positive - HIV-1 RNA copies/mL 44,700, logcopies/mL 4.65 - WBC 3.8 - LDH 516 - CD4 265 (19%) - CD8 799 (58%) - Hepatitis panel negative - RPR neagtive - Cryptococcus negative - Blood Cx negative - Echo normal EF; suspicious for pfo; - IV Abx: vanco zosyn, bactrim - ID consulted (Devin) Lymphadenopathy- extensive, chief complaint of R neck mass - CT neck: extensive cervical and supraclavicular lymphadenopathy suspicious for neoplasm such as lymphoma - CT C/A/P: right neck lymphadenopathy, bilateral axillary lymphadenopathy, periaortic upper abdominal lymphadenopathy, distended stomach, mild hepatomegaly - 1st Bx (12/16): fibroadipose tissue showing patchy acute and chronic inflammation, fat necrosis, no lymph tissue or malignancy - 2nd Bx (12/21) pathology pending - ESR 92 - Tylenol PRN - IR consulted (Warren) - Surgery consulted (Jerrell) - Hematology/oncology consulted (Freedom) Asymptomatic bacteriuria - UCx: Staph aureus (50,000-100,000 colonies), suspect contamination but patient is immunocompromised - Repeat UA and UCx pending - Bactrim 80 mg IV Q12H- started 12/21 PPx: VTE: SCDs, Heparin 5000 u SC Q8H GI: not indicated Code status: full code Dispo: Patient needs to remain on isolation until AFB sputum results. As per ID, patient will need RIPE therapy before antivirals if she is truly positive for TB. Additionally, pending Bx results of neck mass. 1st afb sputum negative, pending 2 more Case discussed with attending, Dr. Comer PGY-1 Rakesh Bustillo <Norris Comer H - Last Filed: 12/27/18 09:41> Objective - Vital Signs/Intake and Output Vital Signs (last 24 hours): Temp Pulse Resp BP Pulse Ox 98.1 F 88 20 104/66 96 12/27/18 00:00 12/27/18 00:00 12/27/18 00:00 12/27/18 00:00 12/27/18 00:00 Intake and Output: 12/27/18 12/27/18 06:59 18:59 Intake Total 150 Balance 150 - Medications Medications: Current Medications Acetaminophen (Tylenol 325mg Tab) 650 mg PO Q4 PRN PRN Reason: Pain, Mild (1-3) Enoxaparin Sodium (Lovenox) 40 mg SC DAILY ARSLAN Piperacillin Sod/Tazobactam Sod (Zosyn 3.375 Gm Iv Premix) 3.375 gm in 50 mls @ 100 mls/hr IVPB Q6H ARSLAN; Protocol Last Admin: 12/27/18 04:54 Dose: 100 mls/hr Trimethoprim/Sulfamethoxazole (80 mg/ Dextrose) 100 mls @ 100 mls/hr IVPB Q12H ARSLAN; Protocol Last Admin: 12/27/18 08:20 Dose: 100 mls/hr - Labs Labs: 12/27/18 08:03 12/27/18 08:03 APTT 45 SECONDS (21-34) H 12/24/18 09:00 Attending/Attestation - Attestation I have personally seen and examined this patient.: Yes I have fully participated in the care of the patient.: Yes I have reviewed all pertinent clinical information, including history, physical exam and plan: Yes Notes (Text): 12/27/18 09:39 Medical attending: Patient was seen and examined by me Reviewed the above note by the resident The patient was not in any acute distress Yesterday she was more worried and one of the residents were able to speak to her in Malay As mentioned previously - so far one sputum AFB stain is negative Also as previously mentioned she is + HIV We are still waiting on the second biopsy result, the first one was negative Currently afebrile, she remains on the IV abx Norris Comer
[2018-12-27] MEDS: Piperacill/Tazo 3.375gm in Dex 3.375 GM/50 ML BAG IVPB SCH ×4 (04:54→22:39)
[2018-12-27 08:11] LABS: BASO % 0.5 % (0.0-2.0); EOS % 0.4 % (0.0-4.0); HEMOGLOBIN 12.9 g/dL (11.0-16.0); LYMPH # 1.3 K/uL (1.0-4.3); LYMPH % 31.8 % (20.0-40.0); MEAN CELL VOLUME 90.9 fL (81.0-99.0); MEAN CORPUSCULAR HEMOGLOBIN 31.5 pg (27.0-31.0); MEAN CORPUSCULAR HGB CONC 34.6 g/dL (33.0-37.0); MEAN PLATELET VOLUME 7.2 fL (7.2-11.7); MONO # 0.5 K/uL (0.0-0.8); MONO % 12.2 % (0.0-10.0); NEUT # 2.2 K/uL (1.8-7.0); NEUT % 55.1 % (50.0-75.0); NRBC % 0.1 % (0.0-2.0); RBC 4.11 Mil/uL (3.80-5.20); RED CELL DISTRIBUTION WIDTH 12.9 % (11.5-14.5); WHITE BLOOD COUNT 4.1 K/uL (4.8-10.8)
[2018-12-27] MEDS: Sulfamethoxazole/Trimethoprim 80 MG in Dextrose 5% In Water 100 ML IVPB SCH ×2 (08:20→20:55)
[2018-12-27 08:28] LABS: ALB/GLOB RATIO 0.8 (1.0-2.1); ALBUMIN 4.3 g/dL (3.5-5.0); ALT/SGPT 43 U/L (9-52); AST/SGOT 74 U/L (14-36); BLOOD UREA NITROGEN 17 mg/dL (7-17); GFR NON-AFRICAN AMERICAN > 60
[2018-12-27] MEDS: Enoxaparin 40 mg Syringe SC SCH (10:49)
[2018-12-28] MEDS: Piperacill/Tazo 3.375gm in Dex 3.375 GM/50 ML BAG IVPB SCH ×4 (05:17→22:34)
[2018-12-28 07:26] LABS: BASO % 0.3 % (0.0-2.0); EOS % 0.4 % (0.0-4.0); HEMOGLOBIN 12.5 g/dL (11.0-16.0); LYMPH # 1.2 K/uL (1.0-4.3); LYMPH % 27.7 % (20.0-40.0); MEAN CELL VOLUME 90.5 fL (81.0-99.0); MEAN CORPUSCULAR HEMOGLOBIN 31.3 pg (27.0-31.0); MEAN CORPUSCULAR HGB CONC 34.6 g/dL (33.0-37.0); MEAN PLATELET VOLUME 7.7 fL (7.2-11.7); MONO # 0.5 K/uL (0.0-0.8); MONO % 11.9 % (0.0-10.0); NEUT # 2.5 K/uL (1.8-7.0); NEUT % 59.7 % (50.0-75.0); RBC 3.99 Mil/uL (3.80-5.20); RED CELL DISTRIBUTION WIDTH 12.8 % (11.5-14.5); WHITE BLOOD COUNT 4.2 K/uL (4.8-10.8)
[2018-12-28 07:46] LABS: ALB/GLOB RATIO 0.8 (1.0-2.1); ALBUMIN 4.2 g/dL (3.5-5.0); ALT/SGPT 43 U/L (9-52); AST/SGOT 59 U/L (14-36); BLOOD UREA NITROGEN 13 mg/dL (7-17); CALCIUM 8.8 mg/dl (8.6-10.4); GFR NON-AFRICAN AMERICAN > 60
[2018-12-28] MEDS: Sulfamethoxazole/Trimethoprim 80 MG in Dextrose 5% In Water 100 ML IVPB SCH ×2 (08:57→21:00)
--- NOTE | 2018-12-28 09:28 | CP.PCM.PN ---
Subjective - Date & Time of Evaluation Date of Evaluation: 12/28/18 Time of Evaluation: 09:25 - Subjective Subjective: Dustinaakashtim Jerezannettekenroy PGY1 Progress Note for Dr. Aaron Pt was examined at bedside this morning. She reports feeling weak and dizzy at times, but is able to ambulate without difficulty. She expresses that she wants to go home. She denies any fever, chills, nausea, vomiting, abdominal pain, shortness of breath, chest pain. Objective - Vital Signs/Intake and Output Vital Signs (last 24 hours): Temp Pulse Resp BP Pulse Ox 98.6 F 86 20 118/81 97 12/28/18 08:02 12/28/18 08:02 12/28/18 08:02 12/28/18 08:02 12/28/18 08:02 - Medications Medications: Current Medications Acetaminophen (Tylenol 325mg Tab) 650 mg PO Q4 PRN PRN Reason: Pain, Mild (1-3) Last Admin: 12/27/18 14:43 Dose: 650 mg Enoxaparin Sodium (Lovenox) 40 mg SC DAILY ARSLAN Last Admin: 12/27/18 10:49 Dose: 40 mg Piperacillin Sod/Tazobactam Sod (Zosyn 3.375 Gm Iv Premix) 3.375 gm in 50 mls @ 100 mls/hr IVPB Q6H ARSLAN; Protocol Last Admin: 12/28/18 05:17 Dose: 100 mls/hr Trimethoprim/Sulfamethoxazole (80 mg/ Dextrose) 100 mls @ 100 mls/hr IVPB Q12H ARSLAN; Protocol Last Admin: 12/28/18 08:57 Dose: 100 mls/hr - Labs Labs: 12/28/18 07:00 12/28/18 07:00 APTT 45 SECONDS (21-34) H 12/24/18 09:00 - Additional Findings Additional findings: - Constitutional Appears: Non-toxic, No Acute Distress - Head Exam Head Exam: ATRAUMATIC, NORMAL INSPECTION - Eye Exam Eye Exam: EOMI, Normal appearance - Neck Exam Neck Exam: Lymphadenopathy. absent: Tenderness, Thyromegaly Additional comments: soft flesh colored nodule, non tender. Surgical incision site clean/dry/intact. - Respiratory Exam Respiratory Exam: Clear to Ausculation Bilateral, NORMAL BREATHING PATTERN. absent: Respiratory Distress - Cardiovascular Exam Cardiovascular Exam: RRR, +S1, +S2 - GI/Abdominal Exam GI & Abdominal Exam: Soft. absent: Distended, Tenderness - Extremities Exam Extremities Exam: Normal Inspection - Neurological Exam Neurological Exam: Alert, Awake, Oriented x3 - Psychiatric Exam Psychiatric exam: Normal Affect, Normal Mood - Skin Skin Exam: Dry, Normal Color, Warm Assessment and Plan - Assessment and Plan (Free Text) Assessment: Patient is a 28 yo female who presented for enlarging right-sided neck mass. Patient subsequently tested positive for both HIV and TB (QFT). Patient is unaware how she may have contracted HIV. She reports a spontaneous approximately 3 months prior to this admission, and, according to patient, she tested negative for HIV at that time. Imaging has demonstrated extensive lymphadenopathy. First mass biopsy was negative. Pending results of 2nd biopsy. Patient denies any active TB symptoms, including fever, night sweats, hemoptysis, weight loss, and imaging does not show any cavitary lesions. Patient is in airborne isolation pending final AFB sputum result. Plan: Tuberculosis - Quantiferon positive - PPD negative - final AFB sputum pending- 2 sputums negative, 3rd collected - Airborne isolation - CT chest: no cavitary lesions - Blood Cx negative - ID consulted (Devin): recs appreciated HIV - HIV-1 Ab positive - HIV-1 RNA copies/mL: 44,700, log copies/mL: 4.65 - WBC 3.8 - LDH 516 - CD4 265 (19%) - CD8 799 (58%) - Hepatitis panel negative - RPR neagtive - Cryptococcus negative - Blood Cx negative - Echo normal EF; suspicious for pfo - IV Abx: vanco zosyn, bactrim - ID consulted (Devin): recs appreciated Lymphadenopathy improved - CT neck: extensive cervical and supraclavicular lymphadenopathy suspicious for neoplasm such as lymphoma - CT C/A/P: right neck lymphadenopathy, bilateral axillary lymphadenopathy, periaortic upper abdominal lymphadenopathy, distended stomach, mild hepatomegaly - 1st Bx, true cut needle with Gen Sx (12/16): fibroadipose tissue showing patchy acute and chronic inflammation, fat necrosis, no lymph tissue or malignancy - 2nd Bx, US-guided core with IR (12/21): pathology pending - ESR 92 - Tylenol PRN pain - IR consulted (Warren): recs appreciated - Surgery consulted (Jerrell): recs appreciated - Hematology/oncology consulted (Freedom): recs appreciated Asymptomatic bacteruria - UCx: Staph aureus (50,000-100,000 colonies), suspect contamination but patient is immunocompromised - Repeat UCx: no growth - Bactrim 80 mg IV Q12H- started / PPx: VTE: SCDs, Heparin 5000u SC Q8H GI: not indicated Code status: full code Dispo: Pending final AFB sputum culture, will d/c isolation if negative. As per ID, patient will need RIPE therapy before antivirals if she is truly positive for TB. Additionally, pending 2nd Bx results of neck mass. Patient seen and case discussed with Dr. Aaron
[2018-12-28] MEDS: Enoxaparin 40 mg Syringe SC SCH (10:56)
--- NOTE | 2018-12-29 02:00 | PN ---
DATE: 12/28/2018 SUBJECTIVE: The patient was seen today and we are still waiting for the pathology of the right-sided lymph nodes. She is, however, alert, awake and has no fever. PHYSICAL EXAMINATION: VITAL SIGNS: Stable. HEAD: Atraumatic. NECK: Supple, has right side conglomerate of lymph nodes. LUNGS: Clear. HEART: S1, S2. Regular. ABDOMEN: Soft, nontender. No guarding, no rigidity present. EXTREMITIES: Have no edema. LABORATORY DATA: White count is 4.2, hemoglobin 12.5, hematocrit 36.1, platelet count is 269 and BUN is 13, creatinine is 0.9 and alkaline phosphatase is 140 , total proteins are 9.2. I am waiting for the pathology report and her urine showed 2+ leukocytes. The culture report shows Staph aureus in the urine. ASSESSMENT AND PLAN: We need to check her echocardiogram since she has Staphylococcus aureus. I need to check the blood cultures and this is oxacillin sensitive. She was started on Bactrim and she reacted to vancomycin which was discontinued. So, she is on Bactrim and Zosyn, and she had blood cultures. Blood cultures were negative and her Mycobacterium, we have not seen any acid-fast bacillus. We are waiting for the pathology report because her gold QuantiFERON was positive and she turned out to be human immunodeficiency virus positive and I am waiting to see if I need to treat for tuberculosis. Then, we need to treat for tuberculosis before we start her on human immunodeficiency virus medications and she may be referred to the tuberculosis clinic. We will follow. Jeromy Beltran MD
[2018-12-29] MEDS: Piperacill/Tazo 3.375gm in Dex 3.375 GM/50 ML BAG IVPB SCH ×2 (04:06→10:39)
[2018-12-29 07:45] VITALS: RESP 20
[2018-12-29 07:54] LABS: BASO % 0.1 % (0.0-2.0); EOS % 0.5 % (0.0-4.0); HEMOGLOBIN 12.2 g/dL (11.0-16.0); LYMPH # 1.3 K/uL (1.0-4.3); LYMPH % 35.5 % (20.0-40.0); MEAN CELL VOLUME 90.4 fL (81.0-99.0); MEAN CORPUSCULAR HEMOGLOBIN 31.2 pg (27.0-31.0); MEAN CORPUSCULAR HGB CONC 34.6 g/dL (33.0-37.0); MEAN PLATELET VOLUME 7.4 fL (7.2-11.7); MONO # 0.5 K/uL (0.0-0.8); MONO % 14.3 % (0.0-10.0); NEUT # 1.8 K/uL (1.8-7.0); NEUT % 49.6 % (50.0-75.0); RBC 3.9 Mil/uL (3.80-5.20); RED CELL DISTRIBUTION WIDTH 12.8 % (11.5-14.5); WHITE BLOOD COUNT 3.6 K/uL (4.8-10.8)
[2018-12-29 08:06] LABS: ALB/GLOB RATIO 0.8 (1.0-2.1); ALT/SGPT 35 U/L (9-52); AST/SGOT 50 U/L (14-36); BLOOD UREA NITROGEN 15 mg/dL (7-17); CALCIUM 8.6 mg/dl (8.6-10.4); GFR NON-AFRICAN AMERICAN > 60
[2018-12-29] MEDS: Sulfamethoxazole/Trimethoprim 80 MG in Dextrose 5% In Water 100 ML IVPB SCH (08:47)
[2018-12-29] MEDS: Enoxaparin 40 mg Syringe SC SCH (10:38)
--- NOTE | 2018-12-29 14:26 | CP.PCM.DIS ---
Provider - Provider Date of Admission: 12/16/18 21:21 Attending physician: Norris Comer DO Consults: 12/17/18 08:18 General Surgery Consult Routine Comment: Consulting Provider: Donell Allan Consulting Physician: Donell Allan Reason for Consult: Neck Mass 12/18/18 10:46 Physician Consult Routine Comment: Consulting Provider: Keegan Kelley Consulting Physician: Keegan Kelley Reason for Consult: right cervical lymphadenopathy biopsy 12/18/18 12:51 Hematology Oncology Consult Routine Comment: Consulting Provider: Zohaib Loja Consulting Physician: Zohaib Loja Reason for Consult: lymphoma 12/20/18 11:36 Pulmonology Consult Routine Comment: Consulting Provider: Boris Keith Consulting Physician: Boris Keith Reason for Consult: TB 12/21/18 16:14 Infectious Disease Consult Routine Comment: Consulting Provider: Jeromy Beltran Consulting Physician: Jeromy Beltran Reason for Consult: positive HIV, positive quantaferon, lymphadenopathy Time Spent in preparation of Discharge (in minutes): 70 Hospital Course - Lab Results Lab Results: Micro Results 12/27/18 09:03 Other: Please Indicate Mycobacterial Culture - Preliminary 12/25/18 17:41 Other: Please Indicate Mycobacterial Culture - Preliminary 12/25/18 17:41 Other: Please Indicate Mycobacterial Culture - Preliminary 12/25/18 07:49 Urine,Clean Catch Urine Culture - Final No Growth (<1,000 CFU/ML) 12/23/18 21:01 Other: Please Indicate Mycobacterial Culture - Preliminary 12/22/18 11:38 Urine,Clean Catch Urine Culture - Final Staphylococcus Aureus 12/16/18 18:30 Blood Blood Culture - Final NO GROWTH AFTER 5 DAYS 12/16/18 18:30 Blood Gram Stain - Final TEST NOT PERFORMED 12/16/18 18:48 Blood Blood Culture - Final NO GROWTH AFTER 5 DAYS 12/16/18 18:48 Blood Gram Stain - Final TEST NOT PERFORMED Most Recent Lab Values WBC 3.6 K/uL (4.8-10.8) L 12/29/18 07:41 RBC 3.90 Mil/uL (3.80-5.20) 12/29/18 07:41 Hgb 12.2 g/dL (11.0-16.0) 12/29/18 07:41 Hct 35.2 % (34.0-47.0) 12/29/18 07:41 MCV 90.4 fL (81.0-99.0) 12/29/18 07:41 MCH 31.2 pg (27.0-31.0) H 12/29/18 07:41 MCHC 34.6 g/dL (33.0-37.0) 12/29/18 07:41 RDW 12.8 % (11.5-14.5) 12/29/18 07:41 Plt Count 257 K/uL (130-400) 12/29/18 07:41 MPV 7.4 fL (7.2-11.7) 12/29/18 07:41 Neut % (Auto) 49.6 % (50.0-75.0) L 12/29/18 07:41 Lymph % (Auto) 35.5 % (20.0-40.0) 12/29/18 07:41 Mclean % (Auto) 14.3 % (0.0-10.0) H 12/29/18 07:41 Eos % (Auto) 0.5 % (0.0-4.0) 12/29/18 07:41 Baso % (Auto) 0.1 % (0.0-2.0) 12/29/18 07:41 Neut # (Auto) 1.8 K/uL (1.8-7.0) 12/29/18 07:41 Lymph # (Auto) 1.3 K/uL (1.0-4.3) 12/29/18 07:41 Mclean # (Auto) 0.5 K/uL (0.0-0.8) 12/29/18 07:41 Eos # (Auto) 0.0 K/uL (0.0-0.7) 12/29/18 07:41 Baso # (Auto) 0.0 K/uL (0.0-0.2) 12/29/18 07:41 ESR 92 mm/hr (0-20) H 12/17/18 13:55 APTT 45 SECONDS (21-34) H 12/24/18 09:00 Sodium 136 mmol/L (132-148) 12/29/18 07:41 Potassium 4.5 mmol/L (3.6-5.2) 12/29/18 07:41 Chloride 105 mmol/L (98-107) 12/29/18 07:41 Carbon Dioxide 24 mmol/L (22-30) 12/29/18 07:41 Anion Gap 11 (10-20) 12/29/18 07:41 BUN 15 mg/dL (7-17) 12/29/18 07:41 Creatinine 0.9 mg/dL (0.7-1.2) 12/29/18 07:41 Est GFR ( Amer) > 60 12/29/18 07:41 Est GFR (Non-Af Amer) > 60 12/29/18 07:41 Random Glucose 94 mg/dL (65-105) 12/29/18 07:41 Calcium 8.6 mg/dl (8.6-10.4) 12/29/18 07:41 Phosphorus 3.7 mg/dL (2.5-4.5) 12/29/18 07:41 Magnesium 1.7 mg/dL (1.6-2.3) 12/29/18 07:41 Total Bilirubin 0.5 mg/dL (0.2-1.3) 12/29/18 07:41 AST 50 U/L (14-36) H 12/29/18 07:41 ALT 35 U/L (9-52) 12/29/18 07:41 Alkaline Phosphatase 130 U/L (38-126) H 12/29/18 07:41 Lactate Dehydrogenase 516 U/L (313-618) 12/22/18 07:31 Total Protein 9.0 g/dL (6.3-8.3) H 12/29/18 07:41 Albumin 4.0 g/dL (3.5-5.0) 12/29/18 07:41 Globulin 4.9 gm/dL (2.2-3.9) H 12/29/18 07:41 Albumin/Globulin Ratio 0.8 (1.0-2.1) L 12/29/18 07:41 Free T4 0.77 ng/dL (0.78-2.19) L 12/22/18 07:31 TSH 3rd Generation 3.06 mIU/L (0.46-4.68) 12/22/18 07:31 Urine Color Yellow (YELLOW) 12/25/18 15:53 Urine Clarity Hazy (Clear) 12/25/18 15:53 Urine pH 5.0 (5.0-8.0) 12/25/18 15:53 Ur Specific Hope 1.019 (1.003-1.030) 12/25/18 15:53 Urine Protein Negative mg/dL (NEGATIVE) 12/25/18 15:53 Urine Glucose (UA) Normal mg/dL (Normal) 12/25/18 15:53 Urine Ketones Negative mg/dL (NEGATIVE) 12/25/18 15:53 Urine Blood Negative (NEGATIVE) 12/25/18 15:53 Urine Nitrate Negative (NEGATIVE) 12/25/18 15:53 Urine Bilirubin Negative (NEGATIVE) 12/25/18 15:53 Urine Urobilinogen Normal mg/dL (0.2-1.0) 12/25/18 15:53 Ur Leukocyte Esterase 2+ Fany/uL (Negative) H 12/25/18 15:53 Urine WBC (Auto) 15 /hpf (0-5) H 12/25/18 15:53 Urine RBC (Auto) 9 /hpf (0-3) H 12/25/18 15:53 Ur Squamous Epith Cells 30 /hpf (0-5) H 12/25/18 15:53 Urine Bacteria Rare (<OCC) 12/25/18 15:53 Urine HCG, Qual Negative (NEGATIVE) 12/18/18 09:35 Absolute Lymphs (Flow) 1367 Cells/mcL (850-3900) 12/22/18 07:31 % CD3 Cells 78 Percent (57-85) 12/22/18 07:31 Absolute CD3 Count 1068 Cells/mcL (840-3060) 12/22/18 07:31 % CD3-/CD16+/CD56+ 16 Percent (4-25) 12/20/18 13:17 % CD4 Cells 19 Percent (30-61) L 12/22/18 07:31 Absolute CD4 Count 265 Cells/mcL (490-1740) L 12/22/18 07:31 T-Help/Suppress Ratio 0.33 Ratio (0.86-5.00) L 12/22/18 07:31 % CD8 Cells 58 Percent (12-42) H 12/22/18 07:31 Absolute CD8 Count 799 Cells/mcL (180-1170) 12/22/18 07:31 Absolute CD16/CD56 Count 277 Cells/mcL (70-760) 12/20/18 13:17 % CD19 Cells 5 Percent (6-29) L 12/20/18 13:17 Absolute CD19 Count 84 Cells/mcL (110-660) L 12/20/18 13:17 HLA-B*5701 Negative 12/23/18 08:36 RPR Nonreactive (NONREACTIVE) 12/24/18 09:00 B. henselae IgG Titer Negative 12/24/18 09:00 Bartonella henselae IgM Negative 12/24/18 09:00 Bartonella heard IgG Negative 12/24/18 09:00 Bartonella heard IgM Negative 12/24/18 09:00 Cryptococcus Ag Negative (NEGATIVE) 12/23/18 08:36 Hepatitis A IgM Ab Negative (NEGATIVE) 12/19/18 07:09 Hep Bs Antigen Negative (NEGATIVE) 12/19/18 07:09 Hep B Core IgM Ab Negative (NEGATIVE) 12/19/18 07:09 Hepatitis C Antibody Negative (NEGATIVE) 12/19/18 07:09 HIV-1 Antibody (EIA) Positive (Negative) H 12/19/18 07:09 HIV-1 RNA copies/mL 18767 copies/mL (Not Detected) H 12/20/18 13:17 HIV-1 RNA logcopies/mL 4.65 (Not Detected) H 12/20/18 13:17 HIV-2 Antibody (EIA) Negative (Negative) 12/19/18 07:09 HIV 1&2 Antibody Screen Reactive (NEGATIVE) 12/19/18 07:09 HIV 1&2 Antibody Reactive (Nonreactive) H 12/19/18 07:09 TB Test (QFT) Nil 0.41 IU/mL 12/17/18 13:55 TB Test Mitogen - Nil 9.29 IU/mL 12/17/18 13:55 TB Test Antigen - Nil 0.18 IU/mL 12/17/18 13:55 TB Test TB - Nil 0.60 IU/mL 12/17/18 13:55 TB Test (QFT) Positive (Negative) H 12/17/18 13:55 - Hospital Course Hospital Course: Upon Admission: Patient is a 28 year old female with no PMHx who presented to ED for evaluation of increasing in size, right sided neck mass. Pt reports she first noticed the mass on her right neck, and over the past 2 months it has increased significantly in size. 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 Patient reports some phlegm w/ blod tinged streaks, but denies cough or hemoptysis. Patient reports no new sexual encounters, as she is monogamous with her , and no risky behaviors. Patient reports she was recently tested for HIV s/p spontaneous 3 months ago, and all results have been negative. Patient denies weakness, fevers, chills, sweats, weight loss, cough, SOB, nausea, diarrhea. Patient was admitted for R sided neck mass and leukopenia. Hospital Course: CT neck showed extensive cervical and supraclavicular lymphadenopathy suspicious for neoplasm such as lymphoma CT C/A/P showed right neck lymphadenopathy, bilateral axillary lymphadenopathy, periaortic upper abdominal lymphadenopathy, distended stomach, mild hepatomegaly Urine cultures grew Staph aureus. Patient was found to be HIV positive with a CD4 count of 265. Quantiferon was positive. ECHO had normal EF but was suspicious for PFO. Heme/onc was consulted and recommended further imaging for malignancy. ID was consulted and recommended IV vanc, zosyn, and bactrim. HAART therapy was not recommended to start until patient was negative for TB in case of necessary RIPE therapy. Patient completed 7 day course of IV zosyn and bactrim for the asymptomatic bacteuria. 3 AFB cultures were taken and resulted in no growth. General surgery was consulted and performed biopsy of the neck mass. Pathology report of 1st Bx showed fibroadipose tissue showing patchy acute and chronic inflammation, fat necrosis, no lymph tissue or malignancy IR was consulted and performed an US needle biopsy of the lymph node. 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 Heme/onc recommended outpatient treatment for lymphoma at [facility] in [place], [place]. Patient was deemed stable for discharge. Upon Discharge: Patient was given an appointment to follow up with [facility] in [place] on January 14. She was instructed to also apply for Jessica care at [facility]. She was given the application to give out. Addresses and telephone numbers of clinic and jessica care office were given. Patient u nderstood instructions and agreed. Discharge Exam - Head Exam Head Exam: ATRAUMATIC, NORMAL INSPECTION, NORMOCEPHALIC - Eye Exam Eye Exam: EOMI, Normal appearance, PERRL Pupil Exam: NORMAL ACCOMODATION - Neck Exam Additional comments: soft nodule with no drainage or surrounding erythema. - Respiratory Exam Respiratory Exam: Clear to PA & Lateral, NORMAL BREATHING PATTERN. absent: Rales, Rhonchi, Wheezes - Cardiovascular Exam Cardiovascular Exam: REGULAR RHYTHM, +S1, +S2. absent: Gallop, Rubs, Systolic Murmur - GI/Abdominal Exam GI & Abdominal Exam: Normal Bowel Sounds, Soft. absent: Distended, Tenderness - Extremities Exam Extremities exam: normal inspection - Neurological Exam Neurological exam: Alert, Oriented x3 - Psychiatric Exam Psychiatric exam: Normal Affect, Normal Mood - Skin Skin Exam: Normal Color Discharge Plan - Follow Up Plan Condition: FAIR Disposition: HOME/ ROUTINE Additional Instructions: Please follow up at: [facility] [address] [place] [id number] Your appointment is on January 14, 2019. They will be mailing you information for your appointment. Please bring your paperwork with you to the appointment. Please apply for jessica care at [address] [address] If symptoms worsen, please return to the emergency department. Take care and be well. Por favor siga en: [facility] [address] [place] [id number] Valencia rick es el 2018. Le enviarn informacin por correo para valencia rick. Por favor traiga valencia documentacin con usted a la rick. Solicite atencin de mercedes en el [address] [address] Si los sntomas empeoran, por favor regrese al departamento de emergencias. Cuidate emely. Referrals: DeanneCancerClclaudia [Other] - 2 Weeks (please evaluate and treat this 28 year old female with past medical history of HIV and newly diagnosed Classic Hodgkin's Lymphoma. ) Zohaib Loja MD [Staff Provider] - Donell Allan MD [Staff Provider] - Keny Maldonado MD [Staff Provider] -
[2018-12-29 16:31] VITALS: BP 116/80; PULSE 90; TEMP 98.7; O2SAT 96
--- NOTE | 2018-12-29 18:39 | CP.PCM.PN ---
Subjective - Date & Time of Evaluation Date of Evaluation: 12/29/18 Time of Evaluation: 13:00 - Subjective Subjective: LN biopsy noted; classical hodgkins lymphoma Objective - Vital Signs/Intake and Output Vital Signs (last 24 hours): Temp Pulse Resp BP Pulse Ox 98.7 F 90 20 116/80 96 12/29/18 16:00 12/29/18 16:00 12/29/18 16:00 12/29/18 16:00 12/29/18 16:00 - Labs Labs: 12/29/18 07:41 12/29/18 07:41 APTT 45 SECONDS (21-34) H 12/24/18 09:00 - Head Exam Head Exam: ATRAUMATIC - Eye Exam Eye Exam: Normal appearance - ENT Exam ENT Exam: Mucous Membranes Dry - Respiratory Exam Respiratory Exam: NORMAL BREATHING PATTERN - Cardiovascular Exam Cardiovascular Exam: +S1, +S2 - GI/Abdominal Exam GI & Abdominal Exam: Normal Bowel Sounds Assessment and Plan (1) Hodgkins lymphoma Assessment & Plan: classical hodgkins lymphoma outpatient PET CT scan for staging outpatient treatment with oncologist of pts choice Status: Acute
[2018-12-30 06:50] LABS: HIV-1 GENOTYPE DETECTED
== END 2018-12-29 16:28 | disposition home or self-care (01) | DRG 841 ==
LOC: C.ER 17:57 → C.9E 21:21 → C.5S 23:14
PROVIDERS: ADMIT Hospitalist; ATTEND Hospitalist
PROC: 0JB43ZX Excision of Right Neck Subcutaneous Tissue and Fascia, Percutaneous Approach, Diagnostic (ICD-10-PCS; principal; 2018-12-18 14:00)
PROC: 07D13ZX Extraction of Right Neck Lymphatic, Percutaneous Approach, Diagnostic (ICD-10-PCS; 2018-12-21)
PROC: BW4FZZZ Ultrasonography of Neck (ICD-10-PCS; 2018-12-21)
DX: C81.91 Hodgkin lymphoma, unspecified, lymph nodes of head, face, and neck (principal); B20 Human immunodeficiency virus [HIV] disease; D72.819 Decreased white blood cell count, unspecified; Z16.11 Resistance to penicillins